=== PATIENT | female | born 1945 | race African-American/Black ===

== ENCOUNTER 2016-10-12 15:08 | Inpatient (IN) | payer MEDICARE, OTHER ==
[~2016-10-12] VITALS: Ht 167.6 cm; Wt 86.2 kg
[2016-10-12] MEDS ORDERED: IV NORMAL SALINE 1000ML BAG 1,000 ML IV SCH ×2 (15:51→17:33)
[2016-10-12 16:05] LABS: BASO # 0.1 x10^3/uL (0.0-0.2); BASO % 0 % (0-3); EOS % 1 % (0-3); HEMATOCRIT 37.3 % (36.0-47.0); HEMOGLOBIN 11.9 g/dL (12.0-15.5); LYMPH # 0.5 x10^3/uL (1.0-4.8); LYMPH % 2 % (24-48); MEAN CORPUSCULAR HEMOGLOBIN 26 pg (25-35); MEAN CORPUSCULAR HGB CONC 32 g/dL (31-37); MEAN CORPUSCULAR VOLUME 83 fL (79-100); MONO % 2 % (0-9); NEUT % 95 % (31-73); PLATELET COUNT 109 x10^3/uL (140-400); RED BLOOD COUNT 4.51 x10^6/uL (3.50-5.40); RED CELL DISTRIBUTION WIDTH 14.3 % (11.5-14.5); WHITE BLOOD COUNT 30.6 x10^3/uL (4.0-11.0)
[2016-10-12 16:17] LABS: CALCIUM 9.9 mg/dL (8.5-10.1); CREATININE 1.7 mg/dL (0.6-1.0); GFR 29.5; POTASSIUM 3.6 mmol/L (3.5-5.1)
[2016-10-12 16:20] LABS: BILIRUBIN,URINE NEGATIVE (NEG); GLUCOSE,URINE NEGATIVE (NEG); NITRITE,URINE POSITIVE (NEG); PH,URINE 5.5; PROTEIN,URINE 100 mg/dL (NEG-TRACE)
[2016-10-12 16:25] LABS: ALBUMIN 2.8 g/dL (3.4-5.0); ALBUMIN/GLOBULIN RATIO 0.6 (1.0-1.7); TOTAL BILIRUBIN 1.2 mg/dL (0.2-1.0); TOTAL PROTEIN 7.7 g/dL (6.4-8.2)
[2016-10-12 16:36] LABS: RBC,URINE TNTC /HPF (0-2); WBC,URINE >40 /HPF (0-4)
[2016-10-12 16:38] LABS: BACTERIA,URINE MODERATE /HPF (0-FEW)
[2016-10-12 16:39] LABS: SQUAMOUS EPITHELIAL CELL,UR FEW /LPF
[2016-10-12 16:46] LABS: PLT ESTIMATE DECREASED (ADEQUATE)
[2016-10-12] MEDS ORDERED: CEFTRIAXONE 1GM IVPB FOR OMNI 50 ML IV ONE (17:30)
[2016-10-12] MEDS ORDERED: IV NORMAL SALINE 1000ML BAG 1,000 ML IV ONE (17:30)
--- NOTE | 2016-10-12 17:33 | PHYS DOC ---
Past Medical History Past Medical History: Arthritis Past Surgical History: Other Additional Past Surgical Histo: CATARACT, L HIP PINS Alcohol Use: None Drug Use: None Adult General Chief Complaint Chief Complaint: MECHANICAL FALL HPI HPI Patient is a 71 year old female brought from home by ambulance after she fell 3 days ago and has been laying on the floor ever since then. She was not able to get up due to right leg pain. She believes she fainted, she doesn't know why she fell in the first place. She has not had anything to eat or drink during this time. She believes she struck her forehead and face when she landed as well. Right now her main complaint is right hip and leg pain. She has not had vomiting or diarrhea. She lives alone in her own home. Review of Systems Review of Systems Constitutional: Denies fever or chills [] Eyes: Denies change in visual acuity, redness, or eye pain [] HENT: Denies nasal congestion or sore throat [] Respiratory: Denies cough or shortness of breath [] Cardiovascular: Denies chest pain GI: Denies abdominal pain, nausea, vomiting, bloody stools or diarrhea [] : Denies dysuria or hematuria [] Musculoskeletal: As in history of present illness Integument: Denies rash or skin lesions [] Neurologic: Denies headache, focal weakness or sensory changes [] Current Medications Current Medications Current Medications Medications (Trade) Dose Ordered Sig/Gaby Start Time Stop Time Status Last Admin Dose Admin Sodium Chloride (Iv Sodium Chloride 0.9% 1000ml Bag) 1,000 ml @ 1,000 mls/hr Q1H 10/12/16 15:51 10/12/16 16:50 DC 10/12/16 16:11 1,000 MLS/HR Allergies Allergies Allergies Coded Allergies Type Severity Reaction Last Updated Verified No Known Drug Allergies 10/12/16 No Physical Exam Physical Exam Constitutional: Well developed, well nourished, no acute distress, non-toxic appearance. Alert, mentating normally. HENT: Abrasion to chin and left cheek that appear consistent with the 3 day time frame, bilateral external ears normal, oral mucous membranes dry, nose normal. [] Eyes: conjunctiva normal, no discharge. [] Neck: Normal range of motion, no stridor. [] Cardiovascular:Heart rate regular rhythm, no murmur [] Lungs & Thorax: Bilateral breath sounds clear to auscultation [] Abdomen: Bowel sounds normal, soft, no tenderness, no masses, no pulsatile masses. [] Skin: Warm, dry, no erythema, no rash. [] Extremities: no cyanosis, no clubbing, ROM intact, no edema. Right hip tender to palpation, right femur tender to palpation, right knee tender to palpation. Lower leg, ankle, foot nontender, no deformity. Neurologic: Alert and oriented X 3, normal motor function, normal sensory function, no focal deficits noted. [] Current Patient Data Vital Signs Vital Signs Date Time Temp Pulse Resp B/P Pulse Ox O2 Delivery O2 Flow Rate FiO2 10/12/16 16:23 104 22 165/90 94 Room Air 10/12/16 15:25 97.4 97.4 Lab Values Laboratory Tests Test 10/12/16 15:50 10/12/16 16:10 White Blood Count 30.6x10^3/uL (4.0-11.0) H Red Blood Count 4.51x10^6/uL (3.50-5.40) Hemoglobin 11.9g/dL (12.0-15.5) L Hematocrit 37.3% (36.0-47.0) Mean Corpuscular Volume 83fL (79-100) Mean Corpuscular Hemoglobin 26pg (25-35) Mean Corpuscular Hemoglobin Concent 32g/dL (31-37) Red Cell Distribution Width 14.3% (11.5-14.5) Platelet Count 109x10^3/uL (140-400) L Neutrophils (%) (Auto) 95% (31-73) H Lymphocytes (%) (Auto) 2% (24-48) L Monocytes (%) (Auto) 2% (0-9) Eosinophils (%) (Auto) 1% (0-3) Basophils (%) (Auto) 0% (0-3) Neutrophils # (Auto) 29.2x10^3uL (1.8-7.7) H Lymphocytes # (Auto) 0.5x10^3/uL (1.0-4.8) L Monocytes # (Auto) 0.6x10^3/uL (0.0-1.1) Eosinophils # (Auto) 0.3x10^3/uL (0.0-0.7) Basophils # (Auto) 0.1x10^3/uL (0.0-0.2) Segmented Neutrophils % 90% (35-66) H Band Neutrophils % 10% (0-9) H Metamyelocytes % 0% (0-0) Platelet Estimate Decreased (ADEQUATE) Sodium Level 148mmol/L (136-145) H Potassium Level 3.6mmol/L (3.5-5.1) Chloride Level 107mmol/L (98-107) Carbon Dioxide Level 23mmol/L (21-32) Anion Gap 18 (6-14) H Blood Urea Nitrogen 57mg/dL (7-20) H Creatinine 1.7mg/dL (0.6-1.0) H Estimated GFR (Cockcroft-Gault) 29.5 BUN/Creatinine Ratio 34 (6-20) H Glucose Level 88mg/dL (70-99) Lactic Acid Level 2.9mmol/L (0.4-2.0) H Calcium Level 9.9mg/dL (8.5-10.1) Total Bilirubin 1.2mg/dL (0.2-1.0) H Aspartate Amino Transferase (AST) 104U/L (15-37) H Alanine Aminotransferase (ALT) 49U/L (14-59) Alkaline Phosphatase 132U/L (46-116) H Total Protein 7.7g/dL (6.4-8.2) Albumin 2.8g/dL (3.4-5.0) L Albumin/Globulin Ratio 0.6 (1.0-1.7) L Urine Collection Type Unknown Urine Color Red Urine Clarity Turbid Urine pH 5.5 Urine Specific [place] 1.015 Urine Protein 100mg/dL (NEG-TRACE) Urine Glucose (UA) Negativemg/dL (NEG) Urine Ketones (Stick) 15mg/dL (NEG) Urine Blood Large (NEG) Urine Nitrite Positive (NEG) Urine Bilirubin Negative (NEG) Urine Urobilinogen Dipstick 1.0mg/dL (0.2 mg/dL) Urine Leukocyte Esterase Large (NEG) Urine RBC Tntc/HPF (0-2) Urine WBC >40/HPF (0-4) Urine Squamous Epithelial Cells Few/LPF Urine Bacteria Moderate/HPF (0-FEW) Laboratory Tests 10/12/16 15:50 Laboratory Tests 10/12/16 15:50 EKG EKG 12-lead EKG read by me sinus rhythm with frequent PACs. There are no ST or T wave changes indicative of ischemia or infarction. No STEMI. 1537 [] Radiology/Procedures Radiology/Procedures One view portable chest x-ray read by me. No acute cardiopulmonary abnormality. No bony abnormality noted. Two-view right hip with pelvis read by me. I believe she has a impacted femoral neck fracture. 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 Left hip has been nailed and also has extensive DJD. Three-view x-ray of the right knee read by me. DJD, no acute bony abnormality. [ ] Course & Med Decision Making Course & Med Decision Making Pertinent Labs and Imaging studies reviewed. (See chart for details) 71-year-old female fell 3 days ago and has been laying on the floor since then without anything to eat or drink. She significantly dehydrated. She has pain and tenderness mostly of the right hip. Advised the patient we will start with some labs, IV fluids, and x-rays. She was given 1 L IV normal saline. X-rays are suspicious for a right hip femoral neck fracture. Urinalysis positive for infection. Culture was ordered. Lactic acid is elevated, dehydration and/or sepsis. She is dehydrated. After cultures were obtained, IV Rocephin was ordered. A second liter of IV normal saline was started. Note made of white count 30,000. I suspect this is due to a combination of dehydration, UTI/sepsis, and stress. I discussed the case with Dr. Franco, [facility]. He will admit the patient. I wrote bridge orders. [] Dragon Disclaimer Dragon Disclaimer This electronic medical record was generated, in whole or in part, using a voice recognition dictation system. Departure Departure Impression: Primary Impression: Closed right hip fracture Additional Impression: Sepsis due to urinary tract infection Disposition: ADMITTED INPATIENT Admitting Physician: Sunny Franco Condition: GUARDED Referrals: NO PCP (PCP) Problem Qualifiers DIANE GONZALEZ MD Oct 12, 2016 17:33
[2016-10-12] MEDS ORDERED: ONDANSETRON PF 4 MG/2 ML VIAL. IV PRN ×2 (17:45→19:30)
[2016-10-12] MEDS ORDERED: FENTANYL PF 100 MCG/2 ML VIAL. IV PRN (17:45)
--- NOTE | 2016-10-12 18:04 | RAD ---
PROCEDURE Noncontrast head CT Noncontrast cervical spine CT HISTORY Found down. Fall. Head injury. Neck pain. TECHNIQUE Noncontrast axial cross sectional CT scanning of the head was performed. Noncontrast helical CT scanning of the cervical spine was performed. Multiplanar 2D reconstructions were generated. One or more of the following individualized dose reduction techniques were utilized for this study: 1. Automated exposure control 2. Adjustment of the mA and/or kV according to patient size 3. Use of iterative reconstruction technique COMPARISON None available. FINDINGS HEAD CT: No acute intracranial hemorrhage or midline shift or mass-effect or hydrocephalus or extra-axial fluid collection is seen. No focal hypodense area is seen to indicate an acute infarct or edema radiographically. No skull fracture or pneumocephalus is seen. No opacification of the mastoid sinuses or the paranasal sinuses is seen. The maxillary sinuses are not completely seen in this study. CERVICAL SPINE CT: No acute fracture or anterolisthesis or discitis or osteolytic process is evident. Degenerative endplate spurring and disc space narrowing is seen throughout the cervical spine. IMPRESSION HEAD CT: No acute intracranial abnormality is seen. CERVICAL SPINE CT: No acute fracture. Electronically signed by: Stan Tucker MD (Oct 12, 2016 18:03:19)
--- NOTE | 2016-10-12 18:07 | RAD ---
PROCEDURE CT study of the maxillofacial bones without contrast HISTORY Found down. Fall. Facial injury and pain. TECHNIQUE Noncontrast helical CT scanning of the maxillofacial bones was performed. Multiplanar 2D reconstructions were generated. One or more of the following individualized dose reduction techniques were utilized for this study: 1. Automated exposure control 2. Adjustment of the mA and/or kV according to patient size 3. Use of iterative reconstruction technique COMPARISON None available. FINDINGS The mandible is intact and the temporomandibular joints are normally aligned. The maxilla and pterygoid plates are intact. The nasal bones and nasal spine are intact. No significant nasal septal deviation is seen. The orbits and orbital floors are intact. The zygoma and zygomatic arch are intact. There is moderate mucosal thickening of the left sphenoid sinus. There is mild mucosal thickening of the inferior aspect of the right frontal sinus. Mild left-sided facial soft tissue edema is seen. IMPRESSION No acute fracture. Left sphenoid sinusitis. Electronically signed by: Stan Tucker MD (Oct 12, 2016 18:06:41)
--- NOTE | 2016-10-12 19:24 | ACF ---
Admission Forms Criteria SEPSIS and OTHER FEBRILE ILLNESS, W/O FOCAL INFECTION Clinical Indications for Admission to Inpatient Care ( Place 'X' for any and all applicable criteria): Admission is indicated for ANY ONE of the following (1)(2)(3)(4): [ ] I. Bacteremia [X]II. Suspected or identified specific infection requiring hospitalization (eg, meningitis, endocarditis) [ ]III. Hemodynamic instability [ ]IV. Altered mental status [ ]V. Failure or unavailability of outpatient antimicrobial treatment [ ]. Hypoxemia [ ]VII. Seizures [ ]VIII. High-risk febrile neutropenia [ ]IX. Need for parenteral antibiotic in patient who is likely to abuse vascular access device (eg, injection drug user) [A](7) [ ]X. Temperature greater than 104.9 degrees F (40.5 degrees C) (oral) [ ]XI. Inpatient admission required rather than observation care because of ANY ONE of the following: [ ]1) Specific infection identified that is too severe for outpatient treatment or observation care trial [ ]2) Metabolic disorder (eg, hypoglycemia, hyperglycemia, metabolic acidosis) that is severe or persistent [ ]3) Temperature greater than 103.1 degrees F (39.5 degrees C) ( oral) that is not responsive to observation care treatment [ ]4) IV fluid to replace significant ongoing (eg, for over 24 hours) losses (> 3 L/m2 per day) [ ]5) Supplemental oxygen or respiratory treatments for over 24 hours that is performable only in acute inpatient setting [ ]6) Parenteral nutrition regimen need that must be implemented on inpatient basis [ ]7) Strict or protective (eg, laminar flow) isolation [ ]8) Other condition, treatment or monitoring requiring inpatient admission Extended stay beyond goal length of stay may be needed for(1)(3) [ ]a) Sepsis or septic shock(22) [ ]b) Positive blood cultures [ ]c) Insufficient oral intake [ ]d) High-risk febrile neutropenia(29)(30) [ ]e) Continued fever and clinical instability [ ]f) Clinically active comorbid illness (e.g,heart failure, renal failure , diabetes) The original [employer] content created by G[employer] has been revised. The portions of the content which have been revised are identified through the use of italic text or in bold, and [employer] has neither reviewed nor approved the modified material. All other unmodified content is copyright [facility]. Please see references footnoted in the original [facility] edition 2016 Admission Criteria Met?: Yes ILA BOWERS Oct 12, 2016 19:24
[2016-10-12] MEDS ORDERED: HYDROCODONE/APAP 5/325MG TABLET. PO PRN (19:30)
[2016-10-12] MEDS ORDERED: hydrALAZINE 20 MG/ML VIAL. IVP PRN (19:30)
[2016-10-12] MEDS ORDERED: ACETAMINOPHEN 325 MG TABLET. PO PRN (19:30)
[2016-10-12] MEDS ORDERED: ALBUTEROL SULFATE 2.5 MG/3 ML NEBU. NEB PRN (19:30)
[2016-10-12 19:35] VITALS: BP 129/87
[2016-10-12] MEDS: IV NORMAL SALINE 1000ML BAG 1,000 ML IV SCH (20:00)
--- NOTE | 2016-10-12 22:05 | PDOC1 ---
History and Physical Current Problem List Problem List Problems Medical Problems: (1) Closed right hip fracture Status: Acute (2) Sepsis due to urinary tract infection Status: Acute Current Medications Current Medications Current Medications Medications (Trade) Dose Ordered Sig/Gaby Start Time Stop Time Status Last Admin Dose Admin Acetaminophen (Tylenol) 325 mg PRN Q6HRS PRN 10/12/16 19:30 Acetaminophen/ Hydrocodone Bitart (Lortab 5/325) 1 tab PRN Q6HRS PRN 10/12/16 19:30 Albuterol Sulfate (Ventolin Neb Soln) 2.5 mg PRN Q4HRS PRN 10/12/16 19:30 Ceftriaxone Sodium (Rocephin 1gm Ivpb For Omni) 50 ml @ 100 mls/hr 1X ONCE 10/12/16 17:30 10/12/16 17:59 DC 10/12/16 17:53 100 MLS/HR Fentanyl Citrate 25 mcg 25 mcg PRN Q2HR PRN 10/12/16 17:45 10/13/16 17:44 Hydralazine HCl (Apresoline) 10 mg PRN Q4HRS PRN 10/12/16 19:30 Ondansetron HCl (Zofran) 4 mg PRN Q8HRS PRN 10/12/16 19:30 Sodium Chloride (Iv Sodium Chloride 0.9% 1000ml Bag) 1,000 ml @ 75 mls/hr [id number] 10/12/16 19:30 Allergies Allergies Allergies Coded Allergies Type Severity Reaction Last Updated Verified No Known Drug Allergies 10/12/16 No ROS Review of System CONSTITUTIONAL: fall at home EYES: No recent changes SKIN: No rash or itching CARDIOVASCULAR: No chest pain, syncope, palpitations, or edema RESPIRATORY: No SOB or cough GASTROINTESTINAL: No nausea, vomiting or abdominal pain NEUROLOGICAL: No headaches or weakness ENDOCRINE: No cold or heat intolerance GENITOURINARY: No urgency or frequency of urination MUSCULOSKELETAL: No back pain or joint pain LYMPHATICS: No enlarged lymph nodes PSYCHIATRIC: No anxiety or depression Physical Exam Physical Exam GEN.: No apparent distress. Alert and oriented. HEENT: Head is normocephalic, atraumatic NECK: Supple. normal airflow LUNGS: Clear to auscultation. no jvd HEART: RRR, S1, S2 present. Peripheral pulses intact ABDOMEN: Soft, nontender. Positive bowel sounds. EXTREMITIES: Without any cyanosis. NEUROLOGIC: Normal speech, normal tone PSYCHIATRIC: Normal affect, normal mood. SKIN bruise on face Vitals Vitals Vital Signs Date Time Temp Pulse Resp B/P Pulse Ox O2 Delivery O2 Flow Rate FiO2 10/12/16 19:35 97.7 108 18 129/87 92 Room Air 97.7 Labs Labs Laboratory Tests Test 10/12/16 15:50 10/12/16 16:10 White Blood Count 30.6x10^3/uL (4.0-11.0) Red Blood Count 4.51x10^6/uL (3.50-5.40) Hemoglobin 11.9g/dL (12.0-15.5) Hematocrit 37.3% (36.0-47.0) Mean Corpuscular Volume 83fL (79-100) Mean Corpuscular Hemoglobin 26pg (25-35) Mean Corpuscular Hemoglobin Concent 32g/dL (31-37) Red Cell Distribution Width 14.3% (11.5-14.5) Platelet Count 109x10^3/uL (140-400) Neutrophils (%) (Auto) 95% (31-73) Lymphocytes (%) (Auto) 2% (24-48) Monocytes (%) (Auto) 2% (0-9) Eosinophils (%) (Auto) 1% (0-3) Basophils (%) (Auto) 0% (0-3) Neutrophils # (Auto) 29.2x10^3uL (1.8-7.7) Lymphocytes # (Auto) 0.5x10^3/uL (1.0-4.8) Monocytes # (Auto) 0.6x10^3/uL (0.0-1.1) Eosinophils # (Auto) 0.3x10^3/uL (0.0-0.7) Basophils # (Auto) 0.1x10^3/uL (0.0-0.2) Segmented Neutrophils % 90% (35-66) Band Neutrophils % 10% (0-9) Metamyelocytes % 0% (0-0) Platelet Estimate Decreased (ADEQUATE) Sodium Level 148mmol/L (136-145) Potassium Level 3.6mmol/L (3.5-5.1) Chloride Level 107mmol/L (98-107) Carbon Dioxide Level 23mmol/L (21-32) Anion Gap 18 (6-14) Blood Urea Nitrogen 57mg/dL (7-20) Creatinine 1.7mg/dL (0.6-1.0) Estimated GFR (Cockcroft-Gault) 29.5 BUN/Creatinine Ratio 34 (6-20) Glucose Level 88mg/dL (70-99) Lactic Acid Level 2.9mmol/L (0.4-2.0) Calcium Level 9.9mg/dL (8.5-10.1) Total Bilirubin 1.2mg/dL (0.2-1.0) Aspartate Amino Transf (AST/SGOT) 104U/L (15-37) Alanine Aminotransferase (ALT/SGPT) 49U/L (14-59) Alkaline Phosphatase 132U/L (46-116) Creatine Kinase 2102U/L (26-192) Total Protein 7.7g/dL (6.4-8.2) Albumin 2.8g/dL (3.4-5.0) Albumin/Globulin Ratio 0.6 (1.0-1.7) Urine Collection Type Unknown Urine Color Red Urine Clarity Turbid Urine pH 5.5 Urine Specific [place] 1.015 Urine Protein 100mg/dL (NEG-TRACE) Urine Glucose (UA) Negativemg/dL (NEG) Urine Ketones (Stick) 15mg/dL (NEG) Urine Blood Large (NEG) Urine Nitrite Positive (NEG) Urine Bilirubin Negative (NEG) Urine Urobilinogen Dipstick 1.0mg/dL (0.2 mg/dL) Urine Leukocyte Esterase Large (NEG) Urine RBC Tntc/HPF (0-2) Urine WBC >40/HPF (0-4) Urine Squamous Epithelial Cells Few/LPF Urine Bacteria Moderate/HPF (0-FEW) Laboratory Tests Test 10/12/16 15:50 10/12/16 16:10 White Blood Count 30.6x10^3/uL (4.0-11.0) Red Blood Count 4.51x10^6/uL (3.50-5.40) Hemoglobin 11.9g/dL (12.0-15.5) Hematocrit 37.3% (36.0-47.0) Mean Corpuscular Volume 83fL (79-100) Mean Corpuscular Hemoglobin 26pg (25-35) Mean Corpuscular Hemoglobin Concent 32g/dL (31-37) Red Cell Distribution Width 14.3% (11.5-14.5) Platelet Count 109x10^3/uL (140-400) Neutrophils (%) (Auto) 95% (31-73) Lymphocytes (%) (Auto) 2% (24-48) Monocytes (%) (Auto) 2% (0-9) Eosinophils (%) (Auto) 1% (0-3) Basophils (%) (Auto) 0% (0-3) Neutrophils # (Auto) 29.2x10^3uL (1.8-7.7) Lymphocytes # (Auto) 0.5x10^3/uL (1.0-4.8) Monocytes # (Auto) 0.6x10^3/uL (0.0-1.1) Eosinophils # (Auto) 0.3x10^3/uL (0.0-0.7) Basophils # (Auto) 0.1x10^3/uL (0.0-0.2) Segmented Neutrophils % 90% (35-66) Band Neutrophils % 10% (0-9) Metamyelocytes % 0% (0-0) Platelet Estimate Decreased (ADEQUATE) Sodium Level 148mmol/L (136-145) Potassium Level 3.6mmol/L (3.5-5.1) Chloride Level 107mmol/L (98-107) Carbon Dioxide Level 23mmol/L (21-32) Anion Gap 18 (6-14) Blood Urea Nitrogen 57mg/dL (7-20) Creatinine 1.7mg/dL (0.6-1.0) Estimated GFR (Cockcroft-Gault) 29.5 BUN/Creatinine Ratio 34 (6-20) Glucose Level 88mg/dL (70-99) Lactic Acid Level 2.9mmol/L (0.4-2.0) Calcium Level 9.9mg/dL (8.5-10.1) Total Bilirubin 1.2mg/dL (0.2-1.0) Aspartate Amino Transf (AST/SGOT) 104U/L (15-37) Alanine Aminotransferase (ALT/SGPT) 49U/L (14-59) Alkaline Phosphatase 132U/L (46-116) Creatine Kinase 2102U/L (26-192) Total Protein 7.7g/dL (6.4-8.2) Albumin 2.8g/dL (3.4-5.0) Albumin/Globulin Ratio 0.6 (1.0-1.7) Urine Collection Type Unknown Urine Color Red Urine Clarity Turbid Urine pH 5.5 Urine Specific [place] 1.015 Urine Protein 100mg/dL (NEG-TRACE) Urine Glucose (UA) Negativemg/dL (NEG) Urine Ketones (Stick) 15mg/dL (NEG) Urine Blood Large (NEG) Urine Nitrite Positive (NEG) Urine Bilirubin Negative (NEG) Urine Urobilinogen Dipstick 1.0mg/dL (0.2 mg/dL) Urine Leukocyte Esterase Large (NEG) Urine RBC Tntc/HPF (0-2) Urine WBC >40/HPF (0-4) Urine Squamous Epithelial Cells Few/LPF Urine Bacteria Moderate/HPF (0-FEW) VTE Prophylaxis Ordered VTE Prophylaxis Devices: Yes VTE Pharmacological Prophylaxi: Yes ANA M DEE MD Oct 12, 2016 22:05
[2016-10-12 23:20] VITALS: BP 129/60
[2016-10-13] VITALS (12 sets, daily range): BP systolic 101–153; BP diastolic 22–69
[2016-10-13] MEDS: IV NORMAL SALINE 1000ML BAG 1,000 ML IV SCH ×2 (04:35→11:03)
[2016-10-13 05:10] LABS: BASO % 0 % (0-3); EOS % 0 % (0-3); HEMATOCRIT 33.7 % (36.0-47.0); HEMOGLOBIN 10.7 g/dL (12.0-15.5); LYMPH # 0.7 x10^3/uL (1.0-4.8); LYMPH % 3 % (24-48); MEAN CORPUSCULAR HEMOGLOBIN 27 pg (25-35); MEAN CORPUSCULAR HGB CONC 32 g/dL (31-37); MEAN CORPUSCULAR VOLUME 83 fL (79-100); MONO % 3 % (0-9); NEUT % 94 % (31-73); PLATELET COUNT 83 x10^3/uL (140-400); RED BLOOD COUNT 4.04 x10^6/uL (3.50-5.40); RED CELL DISTRIBUTION WIDTH 14.5 % (11.5-14.5); WHITE BLOOD COUNT 23.1 x10^3/uL (4.0-11.0)
[2016-10-13 05:50] LABS: CALCIUM 9.2 mg/dL (8.5-10.1); CREATININE 1.4 mg/dL (0.6-1.0); GFR 44.7
--- NOTE | 2016-10-13 06:47 | EKG ---
[facility] [address] [place] [address] Test Date: 2016-10-12 Test Time: 15:37:30 Pat Name: HENNY SAEZ Department: Room: 410 Gender: F Wanigan Clerk: : 1945 Requested By: DAINE GONZALEZ Order Number: [id number] Reading MD: Bo Alicia Measurements Intervals [place] Rate: 99 P: 43 UT: 140 QRS: 9 QRSD: 70 T: 36 QT: 358 QTc: 465 Interpretive Statements SINUS RHYTHM ATRIAL PREMATURE COMPLEX(ES) OTHERWISE NORMAL ECG RI6.01 No previous ECG available for comparison Electronically Signed On 10-30-2016 14:23:05 [employer]PER[employer] by Bo Alicia
--- NOTE | 2016-10-13 07:45 | HP ---
ADMIT DATE: 10/12/2016 CHIEF COMPLAINT: Dehydration. HISTORY OF PRESENT ILLNESS: A 71-year-old female patient was brought to the hospital by EMS after sustaining a questionable fall at home and reportedly the patient was lying on the floor for nearly 3 days and some of her family members called EMS and brought to the ER. Upon arrival, the patient was diagnosed with a fracture of the right hip and also she was noted to have severe dehydration and urinary tract infection. At the time of my examination, the patient appears to be dehydrated and healing bruise present on the left side of the face and bilateral knee regions. She denies any syncope. She does not recall how she fell. However, she is complaining of right hip pain with muscle mobility. PAST MEDICAL HISTORY: Cataracts, arthritis, hip pain. PERSONAL HISTORY: No smoking, no alcohol, no drug use. FAMILY HISTORY: Questionable hypertension. REVIEW OF SYSTEMS AND PHYSICAL EXAMINATION: Please see my electronic H and P. LABORATORY FINDINGS: Chemistry: Sodium is 148, potassium 3.6, chloride is 107, carbon dioxide 23, anion gap 18, BUN is 57 and creatinine is 1.7. GFR 29 and glucose ____, lactic acid 2.9, total bilirubin 1.2. AST 104. CK is 2102. WBC ____ hemoglobin is 11.9, MCV is 83, platelets 109, neutrophils 95, segmented neutrophil 90%, bands 10%. Urine: Ketones 15, nitrites positive, leukocyte esterase large. IMAGING STUDIES: Maxillofacial CT and CT neck ____ seen. Hip pelvic x-ray preliminary report right hip fracture, final report pending. ASSESSMENT AND PLAN: 1. Status post fall at home. 2. Right hip fracture found on admission. 3. Urinary tract infection. 4. Acute kidney injury. 5. Severe dehydration. 6. Elevated CPK. 7. Leukocytosis PLAN: 1. The patient is admitted to hospital and orthopedics has been consulted. Pain control with IV morphine. 2. She received Rocephin. I will continue Rocephin. IV hydration at least 125 mL per hour. 3. Monitor WBC in the a.m. If the symptoms persist consult Infectious Disease. 4. Monitor CPK in a.m. 5. DVT prophylaxis. 6. The patient did not get any prescription home medications. 7. Supportive care, n.p.o. from midnight. 8. Prognosis is guarded. 9. Fall precautions. 10. Pain control with oral [place] ANA M DEE MD DR: ANKIT/andriy JOB#: [id number] / [id number] NYLA
--- NOTE | 2016-10-13 08:47 | RAD ---
Pelvis with right hip, 10/12/2016: History: Fall There is severe degenerative change at both hip joints with joint space narrowing, subchondral sclerosis and cyst formation. Two surgical pins are present extending longitudinally through the left femoral neck into the femoral head, apparently transfixing an old healed fracture. There is cortical irregularity at the junction of the right femoral head and neck which is probably due to spurring. A definite acute fracture line is not seen. No underlying trabecular distortion is identified. An IUD is projected over the pelvis just left of midline. IMPRESSION: 1. Severe degenerative change at both hip joints. 2. Old, healed, internally fixed left femoral neck fracture. 3. No acute right hip abnormality is detected. If there is a high clinical concern of an occult fracture, CT or MR scanning may be useful for further evaluation.
--- NOTE | 2016-10-13 08:51 | RAD ---
Right knee, 3 views, 10/12/2016: History: Fall No acute fracture or dislocation is identified. There is minimal spurring at the knee joint and at the patellofemoral articulation. No significant joint effusion is seen. IMPRESSION: No acute bony abnormality is detected.
--- NOTE | 2016-10-13 08:53 | RAD ---
Portable chest, 10/12/2016: History: Fall, shortness of breath The heart size and pulmonary vascularity are normal. There is mild calcific plaquing of the thoracic aorta. There is mild linear atelectasis or scarring in the right infrahilar region. The lungs are otherwise clear. There is no evidence of pleural fluid or pneumothorax. Moderate hypertrophic spurring is present in the spine. IMPRESSION: 1. Mild right basilar linear atelectasis or scarring. 2. Otherwise no acute cardiopulmonary abnormality is detected.
[2016-10-13] MEDS: POTASSIUM CHLORIDE 10MEQ 100 ML IV SCH ×4 (12:24→22:44)
[2016-10-13] MEDS ORDERED: IV 1/2 NORMAL SALINE 1,000 ML IV SCH (13:00)
[2016-10-13] MEDS ORDERED: LIDOCAINE 2% 100 MG/5 ML DISP.SYRIN. ONE (14:06)
[2016-10-13] MEDS ORDERED: ONDANSETRON PF 4 MG/2 ML VIAL. ONE (14:06)
[2016-10-13] MEDS ORDERED: FENTANYL PF 100 MCG/2 ML VIAL. ONE ×3 (14:06→16:47)
[2016-10-13] MEDS ORDERED: FAMOTIDINE 20 MG/2 ML VIAL ONE (14:06)
[2016-10-13] MEDS ORDERED: PROPOFOL 20 ML IV ONE (14:06)
[2016-10-13] MEDS ORDERED: ROCURONIUM 50 MG/5 ML VIAL. ONE (14:06)
[2016-10-13] MEDS ORDERED: MORPHINE SULFATE 5 MG, KETOROLAC TROMETHAMINE 30 MG, ROPIVacaine 0.5% PF 60 ML, EPINEPH... INT ART ONE ×5 (14:30)
[2016-10-13] MEDS ORDERED: IV RINGERS,LACTATED 1000ML 1,000 ML IV ONE (14:30)
[2016-10-13] MEDS ORDERED: CEFAZOLIN 2GM PREMIX 0 ML IV ONE (14:35)
[2016-10-13] MEDS ORDERED: ONDANSETRON PF 4 MG/2 ML VIAL. IV PRN (15:30)
--- NOTE | 2016-10-13 15:35 | PDOC ---
PROGRESS NOTES Chief Complaint Chief Complaint 1. Status post fall at home. 2. Right hip fracture?, traumatic with fall. neg XR 3. + UA , asymptomatic 4. Acute kidney injury vasomotor, dehydration 5. Severe dehydration. 6. Elevated CPK. 7. Leukocytosis __reactive likely__. 8. hypernatremia 9. hypokalemia 10. high LA, 2/2 dehydration likely plan: 1. ortho sx today, fu with ortho for details, since neg XR but clinical Rt hip fx? 2. cont IVF , change to 1/2 NS 3. fu ucx, cont ceftraxone for now 4. ptot post op 5. labs tmr SW for rehab later this week hopefully History of Present Illness History of Present Illness healthy, independency fell from chair, on floor for 3ds good urine Vitals Vitals Vital Signs Date Time Temp Pulse Resp B/P Pulse Ox O2 Delivery O2 Flow Rate FiO2 10/13/16 14:41 98.8 107 13 146/68 94 Room Air 98.8 Physical Exam General: Alert, Oriented X3, Cooperative Heart: Regular rate, Normal S1, Normal S2 Lungs: Clear Abdomen: Normal bowel sounds, Soft Extremities: No clubbing, No cyanosis Skin: No rashes Labs LABS Laboratory Tests Test 10/12/16 15:50 10/12/16 16:10 10/13/16 04:35 White Blood Count 30.6x10^3/uL (4.0-11.0) 23.1x10^3/uL (4.0-11.0) Red Blood Count 4.51x10^6/uL (3.50-5.40) 4.04x10^6/uL (3.50-5.40) Hemoglobin 11.9g/dL (12.0-15.5) 10.7g/dL (12.0-15.5) Hematocrit 37.3% (36.0-47.0) 33.7% (36.0-47.0) Mean Corpuscular Volume 83fL (79-100) 83fL (79-100) Mean Corpuscular Hemoglobin 26pg (25-35) 27pg (25-35) Mean Corpuscular Hemoglobin Concent 32g/dL (31-37) 32g/dL (31-37) Red Cell Distribution Width 14.3% (11.5-14.5) 14.5% (11.5-14.5) Platelet Count 109x10^3/uL (140-400) 83x10^3/uL (140-400) Neutrophils (%) (Auto) 95% (31-73) 94% (31-73) Lymphocytes (%) (Auto) 2% (24-48) 3% (24-48) Monocytes (%) (Auto) 2% (0-9) 3% (0-9) Eosinophils (%) (Auto) 1% (0-3) 0% (0-3) Basophils (%) (Auto) 0% (0-3) 0% (0-3) Neutrophils # (Auto) 29.2x10^3uL (1.8-7.7) 21.6x10^3uL (1.8-7.7) Lymphocytes # (Auto) 0.5x10^3/uL (1.0-4.8) 0.7x10^3/uL (1.0-4.8) Monocytes # (Auto) 0.6x10^3/uL (0.0-1.1) 0.7x10^3/uL (0.0-1.1) Eosinophils # (Auto) 0.3x10^3/uL (0.0-0.7) 0.1x10^3/uL (0.0-0.7) Basophils # (Auto) 0.1x10^3/uL (0.0-0.2) 0.0x10^3/uL (0.0-0.2) Segmented Neutrophils % 90% (35-66) Band Neutrophils % 10% (0-9) Metamyelocytes % 0% (0-0) Platelet Estimate Decreased (ADEQUATE) Sodium Level 148mmol/L (136-145) 148mmol/L (136-145) Potassium Level 3.6mmol/L (3.5-5.1) 3.0mmol/L (3.5-5.1) Chloride Level 107mmol/L (98-107) 112mmol/L (98-107) Carbon Dioxide Level 23mmol/L (21-32) 23mmol/L (21-32) Anion Gap 18 (6-14) 13 (6-14) Blood Urea Nitrogen 57mg/dL (7-20) 47mg/dL (7-20) Creatinine 1.7mg/dL (0.6-1.0) 1.4mg/dL (0.6-1.0) Estimated GFR (Cockcroft-Gault) 29.5 44.7 BUN/Creatinine Ratio 34 (6-20) Glucose Level 88mg/dL (70-99) 82mg/dL (70-99) Lactic Acid Level 2.9mmol/L (0.4-2.0) Calcium Level 9.9mg/dL (8.5-10.1) 9.2mg/dL (8.5-10.1) Total Bilirubin 1.2mg/dL (0.2-1.0) Aspartate Amino Transf (AST/SGOT) 104U/L (15-37) Alanine Aminotransferase (ALT/SGPT) 49U/L (14-59) Alkaline Phosphatase 132U/L (46-116) Creatine Kinase 2102U/L (26-192) Total Protein 7.7g/dL (6.4-8.2) Albumin 2.8g/dL (3.4-5.0) Albumin/Globulin Ratio 0.6 (1.0-1.7) Urine Collection Type Unknown Urine Color Red Urine Clarity Turbid Urine pH 5.5 Urine Specific [place] 1.015 Urine Protein 100mg/dL (NEG-TRACE) Urine Glucose (UA) Negativemg/dL (NEG) Urine Ketones (Stick) 15mg/dL (NEG) Urine Blood Large (NEG) Urine Nitrite Positive (NEG) Urine Bilirubin Negative (NEG) Urine Urobilinogen Dipstick 1.0mg/dL (0.2 mg/dL) Urine Leukocyte Esterase Large (NEG) Urine RBC Tntc/HPF (0-2) Urine WBC >40/HPF (0-4) Urine Squamous Epithelial Cells Few/LPF Urine Bacteria Moderate/HPF (0-FEW) Review of Systems Review of Systems no fever, chills, sob or chest pain Assessment and Plan Assessmemt and Plan Problems Medical Problems: (1) Closed right hip fracture Status: Acute (2) Sepsis due to urinary tract infection Status: Acute Problems: Comment Review of Relevant I have reviewed the following items selena (where applicable) has been applied. Labs Laboratory Tests Test 10/12/16 15:50 2/12/17 16:10 10/13/16 04:35 White Blood Count 30.6x10^3/uL (4.0-11.0) 23.1x10^3/uL (4.0-11.0) Red Blood Count 4.51x10^6/uL (3.50-5.40) 4.04x10^6/uL (3.50-5.40) Hemoglobin 11.9g/dL (12.0-15.5) 10.7g/dL (12.0-15.5) Hematocrit 37.3% (36.0-47.0) 33.7% (36.0-47.0) Mean Corpuscular Volume 83fL (79-100) 83fL (79-100) Mean Corpuscular Hemoglobin 26pg (25-35) 27pg (25-35) Mean Corpuscular Hemoglobin Concent 32g/dL (31-37) 32g/dL (31-37) Red Cell Distribution Width 14.3% (11.5-14.5) 14.5% (11.5-14.5) Platelet Count 109x10^3/uL (140-400) 83x10^3/uL (140-400) Neutrophils (%) (Auto) 95% (31-73) 94% (31-73) Lymphocytes (%) (Auto) 2% (24-48) 3% (24-48) Monocytes (%) (Auto) 2% (0-9) 3% (0-9) Eosinophils (%) (Auto) 1% (0-3) 0% (0-3) Basophils (%) (Auto) 0% (0-3) 0% (0-3) Neutrophils # (Auto) 29.2x10^3uL (1.8-7.7) 21.6x10^3uL (1.8-7.7) Lymphocytes # (Auto) 0.5x10^3/uL (1.0-4.8) 0.7x10^3/uL (1.0-4.8) Monocytes # (Auto) 0.6x10^3/uL (0.0-1.1) 0.7x10^3/uL (0.0-1.1) Eosinophils # (Auto) 0.3x10^3/uL (0.0-0.7) 0.1x10^3/uL (0.0-0.7) Basophils # (Auto) 0.1x10^3/uL (0.0-0.2) 0.0x10^3/uL (0.0-0.2) Segmented Neutrophils % 90% (35-66) Band Neutrophils % 10% (0-9) Metamyelocytes % 0% (0-0) Platelet Estimate Decreased (ADEQUATE) Sodium Level 148mmol/L (136-145) 148mmol/L (136-145) Potassium Level 3.6mmol/L (3.5-5.1) 3.0mmol/L (3.5-5.1) Chloride Level 107mmol/L (98-107) 112mmol/L (98-107) Carbon Dioxide Level 23mmol/L (21-32) 23mmol/L (21-32) Anion Gap 18 (6-14) 13 (6-14) Blood Urea Nitrogen 57mg/dL (7-20) 47mg/dL (7-20) Creatinine 1.7mg/dL (0.6-1.0) 1.4mg/dL (0.6-1.0) Estimated GFR (Cockcroft-Gault) 29.5 44.7 BUN/Creatinine Ratio 34 (6-20) Glucose Level 88mg/dL (70-99) 82mg/dL (70-99) Lactic Acid Level 2.9mmol/L (0.4-2.0) Calcium Level 9.9mg/dL (8.5-10.1) 9.2mg/dL (8.5-10.1) Total Bilirubin 1.2mg/dL (0.2-1.0) Aspartate Amino Transf (AST/SGOT) 104U/L (15-37) Alanine Aminotransferase (ALT/SGPT) 49U/L (14-59) Alkaline Phosphatase 132U/L (46-116) Creatine Kinase 2102U/L (26-192) Total Protein 7.7g/dL (6.4-8.2) Albumin 2.8g/dL (3.4-5.0) Albumin/Globulin Ratio 0.6 (1.0-1.7) Urine Collection Type Unknown Urine Color Red Urine Clarity Turbid Urine pH 5.5 Urine Specific [place] 1.015 Urine Protein 100mg/dL (NEG-TRACE) Urine Glucose (UA) Negativemg/dL (NEG) Urine Ketones (Stick) 15mg/dL (NEG) Urine Blood Large (NEG) Urine Nitrite Positive (NEG) Urine Bilirubin Negative (NEG) Urine Urobilinogen Dipstick 1.0mg/dL (0.2 mg/dL) Urine Leukocyte Esterase Large (NEG) Urine RBC Tntc/HPF (0-2) Urine WBC >40/HPF (0-4) Urine Squamous Epithelial Cells Few/LPF Urine Bacteria Moderate/HPF (0-FEW) Laboratory Tests Test 10/12/16 15:50 10/12/16 16:10 10/13/16 04:35 White Blood Count 30.6x10^3/uL (4.0-11.0) 23.1x10^3/uL (4.0-11.0) Red Blood Count 4.51x10^6/uL (3.50-5.40) 4.04x10^6/uL (3.50-5.40) Hemoglobin 11.9g/dL (12.0-15.5) 10.7g/dL (12.0-15.5) Hematocrit 37.3% (36.0-47.0) 33.7% (36.0-47.0) Mean Corpuscular Volume 83fL (79-100) 83fL (79-100) Mean Corpuscular Hemoglobin 26pg (25-35) 27pg (25-35) Mean Corpuscular Hemoglobin Concent 32g/dL (31-37) 32g/dL (31-37) Red Cell Distribution Width 14.3% (11.5-14.5) 14.5% (11.5-14.5) Platelet Count 109x10^3/uL (140-400) 83x10^3/uL (140-400) Neutrophils (%) (Auto) 95% (31-73) 94% (31-73) Lymphocytes (%) (Auto) 2% (24-48) 3% (24-48) Monocytes (%) (Auto) 2% (0-9) 3% (0-9) Eosinophils (%) (Auto) 1% (0-3) 0% (0-3) Basophils (%) (Auto) 0% (0-3) 0% (0-3) Neutrophils # (Auto) 29.2x10^3uL (1.8-7.7) 21.6x10^3uL (1.8-7.7) Lymphocytes # (Auto) 0.5x10^3/uL (1.0-4.8) 0.7x10^3/uL (1.0-4.8) Monocytes # (Auto) 0.6x10^3/uL (0.0-1.1) 0.7x10^3/uL (0.0-1.1) Eosinophils # (Auto) 0.3x10^3/uL (0.0-0.7) 0.1x10^3/uL (0.0-0.7) Basophils # (Auto) 0.1x10^3/uL (0.0-0.2) 0.0x10^3/uL (0.0-0.2) Segmented Neutrophils % 90% (35-66) Band Neutrophils % 10% (0-9) Metamyelocytes % 0% (0-0) Platelet Estimate Decreased (ADEQUATE) Sodium Level 148mmol/L (136-145) 148mmol/L (136-145) Potassium Level 3.6mmol/L (3.5-5.1) 3.0mmol/L (3.5-5.1) Chloride Level 107mmol/L (98-107) 112mmol/L (98-107) Carbon Dioxide Level 23mmol/L (21-32) 23mmol/L (21-32) Anion Gap 18 (6-14) 13 (6-14) Blood Urea Nitrogen 57mg/dL (7-20) 47mg/dL (7-20) Creatinine 1.7mg/dL (0.6-1.0) 1.4mg/dL (0.6-1.0) Estimated GFR (Cockcroft-Gault) 29.5 44.7 BUN/Creatinine Ratio 34 (6-20) Glucose Level 88mg/dL (70-99) 82mg/dL (70-99) Lactic Acid Level 2.9mmol/L (0.4-2.0) Calcium Level 9.9mg/dL (8.5-10.1) 9.2mg/dL (8.5-10.1) Total Bilirubin 1.2mg/dL (0.2-1.0) Aspartate Amino Transf (AST/SGOT) 104U/L (15-37) Alanine Aminotransferase (ALT/SGPT) 49U/L (14-59) Alkaline Phosphatase 132U/L (46-116) Creatine Kinase 2102U/L (26-192) Total Protein 7.7g/dL (6.4-8.2) Albumin 2.8g/dL (3.4-5.0) Albumin/Globulin Ratio 0.6 (1.0-1.7) Urine Collection Type Unknown Urine Color Red Urine Clarity Turbid Urine pH 5.5 Urine Specific [place] 1.015 Urine Protein 100mg/dL (NEG-TRACE) Urine Glucose (UA) Negativemg/dL (NEG) Urine Ketones (Stick) 15mg/dL (NEG) Urine Blood Large (NEG) Urine Nitrite Positive (NEG) Urine Bilirubin Negative (NEG) Urine Urobilinogen Dipstick 1.0mg/dL (0.2 mg/dL) Urine Leukocyte Esterase Large (NEG) Urine RBC Tntc/HPF (0-2) Urine WBC >40/HPF (0-4) Urine Squamous Epithelial Cells Few/LPF Urine Bacteria Moderate/HPF (0-FEW) Medications Current Medications Sodium Chloride 1,000 ml @ 1,000 mls/hr Q1H IV Last administered on 10/12/16 16:11; Start 10/12/16 at 15:51; Stop 10/12/16 at 16:50; Status DC Sodium Chloride 1,000 ml @ 1,000 mls/hr 1X ONCE IV Last administered on 18:23; Start 10/12/16 at 17:30; Stop 10/12/16 at 18:29; Status DC Ceftriaxone Sodium (Rocephin 1gm Ivpb For Omni) 50 ml @ 100 mls/hr 1X ONCE IV Last administered on 10/12/16 17:53; Start 10/12/16 at 17:30; Stop 10/12/16 at 17:59; Status DC Ondansetron HCl (Zofran) 4 mg PRN Q8HRS PRN IV NAUSEA/VOMITING Last administered on 10/12/16 23:00; Start 10/12/16 at 17:45; Stop 10/13/16 at 17:44 Fentanyl Citrate 25 mcg 25 mcg PRN Q2HR PRN IV PAIN; Start 10/12/16 at 17:45; Stop 10/13/16 at 17:44 Sodium Chloride 1,000 ml @ 100 mls/hr Q10H IV ; Start 10/12/16 at 17:33; Stop 10/12/16 at 22:18; Status DC Sodium Chloride (Iv Sodium Chloride 0.9% 1000ml Bag) 1,000 ml @ 125 mls/hr Q8H IV Last administered on 10/13/16 11:03; Start 10/12/16 at 19:30; Stop at 12:08; Status DC Acetaminophen (Tylenol) 325 mg PRN Q6HRS PRN PO MILD PAIN / TEMP; Start at 19:30 Acetaminophen/ Hydrocodone Bitart (Lortab 5/325) 1 tab PRN Q6HRS PRN PO MODERATE TO SEVERE PAIN Last administered on 10/12/16 23:01; Start 10/12/16 at 19:30 Hydralazine HCl (Apresoline) 10 mg PRN Q4HRS PRN IVP ELEVATED BP, SEE COMMENTS ; Start 10/12/16 at 19:30 Ondansetron HCl (Zofran) 4 mg PRN Q8HRS PRN IV NAUSEA/VOMITING; Start 10/12/16 at 19:30 Albuterol Sulfate 2.5 mg 2.5 mg PRN Q4HRS PRN NEB SHORTNESS OF BREATH; Start at 19:30 Ceftriaxone Sodium 1 gm/ Sodium Chloride 50 ml @ 100 mls/hr Q24H IV ; Start at 18:00 Sodium Chloride 1,000 ml @ 125 mls/hr Q8H IV Last administered on 10/13/16 12 :23; Start 10/13/16 at 13:00 Potassium Chloride (KCl Premix 10meq) 100 ml @ 100 mls/hr Q1H IV Last administered on 10/13/16 12:24; Start 10/13/16 at 13:00; Stop 10/13/16 at 16:59 Famotidine (Pepcid) 20 mg STK-MED ONCE .ROUTE ; Start 10/13/16 at 14:06; Stop at 14:07; Status DC Ondansetron HCl 4 mg 4 mg STK-MED ONCE .ROUTE ; Start 10/13/16 at 14:06; Stop at 14:07; Status DC Propofol (Diprivan) 20 ml @ As Directed STK-MED ONCE IV ; Start 10/13/16 at 14: 06; Stop 10/13/16 at 14:07; Status DC Lidocaine HCl 100 mg STK-MED ONCE .ROUTE ; Start 10/13/16 at 14:06; Stop at 14:07; Status DC Fentanyl Citrate (Fentanyl 2ml Vial) 100 mcg STK-MED ONCE .ROUTE ; Start at 14:06; Stop 10/13/16 at 14:07; Status DC Rocuronium [place] 50 mg 50 mg STK-MED ONCE .ROUTE ; Start 10/13/16 at 14:06; Stop 10/13/16 at 14:07; Status DC Morphine Sulfate 5 mg/Ketorolac Tromethamine 30 mg/Ropivacaine 60 ml/ Epinephrine HCl 0.5 mg/Sodium Chloride 100.5 ml @ 100.5 mls/ hr 1X PERIOP ONCE INT ART ; Start 10/14/16 at 06:00; Stop 10/14/16 at 06:00; Status DC Lactated Ringer's 1,000 ml @ 75 mls/hr 1X ONCE IV ; Start 10/13/16 at 14:30; Stop 10/14/16 at 03:49 Morphine Sulfate 5 mg/Ketorolac Tromethamine 30 mg/Ropivacaine 60 ml/ Epinephrine HCl 0.5 mg/Sodium Chloride 100.5 ml @ 100.5 mls/ hr 1X PERIOP ONCE INT ART ; Start 10/13/16 at 14:30; Stop 10/13/16 at 15:29 Cefazolin Sodium/ Dextrose 50 ml @ As Directed STK-MED ONCE IV ; Start 10/13/16 at 14:35; Stop 10/13/16 at 14:36; Status DC Cefazolin Sodium/ Dextrose (Ancef 2gm Premix) 50 ml @ 100 mls/hr 1X PREOP PRN IV Pre op; Start 10/14/16 at 06:00; Stop 10/14/16 at 18:00 Vitals/I & O Vital Sign - Last 24 Hours 10/12/16 10/12/16 10/12/16 10/12/16 15:28 15:38 15:53 16:08 Pulse 112 103 103 104 Resp B/P 150/72 147/70 141/80 157/88 Pulse Ox 94 97 94 O2 Delivery Room Air Room Air Room Air Room Air 10/12/16 10/12/16 10/12/16 10/12/16 16:23 17:07 17:52 18:18 Pulse 104 91 93 98 Resp B/P 165/90 179/75 154/125 176/77 Pulse Ox 94 95 94 O2 Delivery Room Air Room Air Room Air Room Air 10/12/16 10/12/16 10/12/16 10/13/16 18:48 19:35 23:20 03:22 Temp 97.7 97.7 98.1 97.7 97.7 98.1 Pulse 97 108 114 106 Resp B/P 170/74 129/87 129/60 113/62 Pulse Ox 95 92 97 96 O2 Delivery Room Air Room Air Room Air Room Air 10/13/16 10/13/16 10/13/16 10/13/16 07:00 07:30 11:00 14:41 Temp 98.7 98.3 98.8 98.7 98.3 98.8 Pulse 95 98 107 Resp B/P 126/67 150/66 146/68 Pulse Ox 94 93 94 O2 Delivery Room Air Room Air Room Air Room Air Intake and Output 10/12/16 10/12/16 10/13/16 15:00 23:00 07:00 Intake Total 1350 ml 400 ml Output Total 500 ml Balance 1350 ml -100 ml SELAM WALLACE MD Oct 13, 2016 15:34
[2016-10-13] MEDS ORDERED: DESFLURANE > 120 MINUTES IH ONE (16:49)
--- NOTE | 2016-10-13 18:11 | PDOC ---
BRIEF OPERATIVE NOTE Date: Oct 13, 2016 Pre-Op Diagnosis right hip severe djd with severe pain s/p fall Post-Op Diagnosis same Procedure Performed right total hip arthroplasty Surgeon Siria Anesthesia Type: General Blood Loss 300cc Specimens Obtained femoral head to pathology Findings above Complications none ZAKI MEZA MD Oct 13, 2016 18:11
[2016-10-13] MEDS ORDERED: HYDROMORPHONE 2 MG/ML VIAL. IV PRN (18:15)
[2016-10-13] MEDS ORDERED: FENTANYL PF 100 MCG/2 ML VIAL. IV PRN ×2 (18:15)
[2016-10-13] MEDS ORDERED: MORPHINE SULFATE 2 MG/ML DISP.SYRIN. IV PRN (18:15)
[2016-10-13] MEDS ORDERED: 0.9 % SODIUM CHLORIDE 10 ML DISP.SYRIN. IV PRN (18:15)
[2016-10-13] MEDS ORDERED: TRAMADOL 50 MG TABLET. PO PRN ×2 (18:15)
[2016-10-13] MEDS ORDERED: HYDROCODONE/APAP 10/325 TABLET. PO PRN (18:15)
[2016-10-13] MEDS ORDERED: DEXTROSE 50% 25 GM / 50ML DISP.SYRIN. IV PRN (18:15)
[2016-10-13] MEDS ORDERED: HYDROCODONE/APAP 7.5/325MG TABLET. PO PRN (18:15)
[2016-10-13] MEDS ORDERED: OXYCODONE/APAP 5/325 TABLET. PO PRN (18:15)
[2016-10-13] MEDS ORDERED: OXYCODONE/APAP 7.5/325 TABLET. PO PRN (18:15)
[2016-10-13] MEDS ORDERED: PROCHLORPERAZINE 10 MG/2 ML VIAL. IV PRN ×2 (18:15)
[2016-10-13] MEDS ORDERED: DIPHENHYDRAMINE 50 MG/ML VIAL IV PRN ×2 (18:15)
[2016-10-13] MEDS ORDERED: ZOLPIDEM 5 MG TABLET. PO PRN (18:15)
[2016-10-13] MEDS ORDERED: CALCIUM CARBONATE 500 MG TAB.CHEW PO PRN (18:15)
[2016-10-13] MEDS ORDERED: MEPERIDINE PF 25 MG/ML VIAL. IV PRN (18:15)
[2016-10-13] MEDS ORDERED: MORPHINE SULFATE 4 MG/ML DISP.SYRIN. IV PRN ×2 (18:15)
[2016-10-13] MEDS ORDERED: ACETAMINOPHEN 325 MG TABLET. PO PRN (18:15)
[2016-10-13] MEDS: FENTANYL PF 100 MCG/2 ML VIAL. IV PRN ×2 (18:20→18:27)
[2016-10-13 20:00] LABS: INR 1.4 (0.8-1.1); PROTHROMBIN TIME PATIENT 15.9 SEC (11.7-14.0)
[2016-10-13] MEDS: CEFTRIAXONE SODIUM 1 GM in IV NORMAL SALINE 50ML 50 ML IV SCH (20:20)
[2016-10-13] MEDS: IV DEXTROSE 5 %-0.45 % NACL 1,000 ML IV SCH (21:00)
[2016-10-13] MEDS: CEFAZOLIN 2GM PREMIX 50 ML IV SCH (21:09)
[2016-10-13] MEDS: CELECOXIB 200 MG CAPSULE PO SCH (21:10)
[2016-10-13] MEDS ORDERED: WARFARIN 5 MG TABLET. PO ONE (21:30)
--- NOTE | 2016-10-14 00:08 | OP ---
DATE OF SURGERY: 10/13/2016 PREOPERATIVE DIAGNOSIS: Severe hip pain status post fall and preexisting DJD, right hip. POSTOPERATIVE DIAGNOSIS: Severe hip pain status post fall and preexisting DJD, right hip. PROCEDURE: Right total hip arthroplasty. SURGEON: Jason Beverly MD. ANESTHESIA: General. ESTIMATED BLOOD LOSS: 300 mL. COMPLICATIONS: None. OPERATIVE INDICATIONS: The patient had had some preexisting right hip pain, but was still functional up until a recent fall, which she states was more like a slide out of her recliner and unfortunately was unable to get up and stand, probably about 3 days on the floor, came in with severe dehydration and urinary tract infection as well as severe hip pain, inability to bear weight on the leg or move to transfer. I had gone over with her the x-rays, which shows severe degenerative change. She actually has some significant degenerative change in the contralateral left hip, which was previously pinned for fracture and also has a leg length discrepancy with the left side short from her previous treatment of the heel hip fracture. I had gone over with her the nonoperative treatment options of possible protected weightbearing with a walker, activity modification, pain medications among others and she stated that although being previously ambulatory, was not able to do anything with the severe debilitating pain and would like it fixed if possible. We talked about the risks, benefits, postoperative course of the total hip arthroplasty, the possibility of infection, medical or other anesthetic complications, leg length discrepancy, instability, premature wear or loosening, blood clot, pulmonary embolism, among others. All her questions were answered and consent was obtained and she agrees to proceed with operative evaluation and treatment. DESCRIPTION OF PROCEDURE: The patient was identified, procedure verified and the patient was placed on the [place] fracture table. After adequate amounts of general anesthesia were administered, all bony prominences were well padded and feet were placed in the traction boots. The right hip was then prepped and draped in standard sterile fashion and after timeout was performed, the patient and procedure identified and verified. Fluoroscopy was used to assess preoperative leg lengths and easily established initial starting incision point. An anterior approach to the hip was carried out. Dissection carried out down to the fascia of the iliotibial band, the iliotibial band was taken laterally. Fascia was taken medially to protect the rectus femoris and overlying structures. Fat pad was excised. The circumflex vessels were cauterized and T incision was made in the hip capsule. A cut was made under fluoroscopic guidance in a napkin ring type fashion to allow access to the femoral head and removal. Femoral head was extremely deformed and oblong in nature. She had significant overgrowth of the acetabulum as well. Reaming was carried out starting at a size 42 through a size 50 where excess osteophytes were removed from the rim of the acetabulum and after adequate bony preparation carried out, a size 52 Continuum trabecular metal cluster hole acetabular liner from Suresh was placed under fluoroscopic and visual guidance. Excellent bite was obtained. A single 50 mm screw was placed superiorly with excellent bite and a trial standard liner was then placed. The right lower extremity was then placed in maximum external rotation where completion of hip capsular release and remaining soft tissue was removed. The pinned hip was then extended and adducted to expose the proximal femur, rat tail rasp was used to ensure the canal was found due to her obesity, the incision had to be extended somewhat proximally to allow access to the femoral canal with a box osteotome and successive size Suresh Avenir broaches up to a size 4. Excellent seating was obtained with the size 4, the calcar region was again trimmed to reflect the seating and trial fitting carried out with a -3.5 and 0-36 mm head. I felt that there was better stability achieved with the 0 and noted that it did increase her leg length just slightly from the preoperative condition, but was necessary for stability. Trial components were then removed. Thorough irrigation carried out with normal saline solution. A standard acetabular liner was placed and tapped into place to lock the highly cross linked polyethylene 52 x 36 mm inner diameter Suresh liner and Avenir standard size 4 implant was impacted into place with excellent fit and a +0 ceramic head was tapped in place to engage the Jasper taper on reduction, equivalent stability and leg lengths were noted. Thorough irrigation carried out with normal saline solution. Hip capsule was repaired with #5 Ethibond. The fascia was closed with #1 Vicryl in a running fashion. Subcutaneous closure with layered Vicryl and skin closure with nylon 2-0 in a vertical mattress fashion. Sterile dressings were applied. The patient was extubated and transferred to postop holding in stable condition having tolerated the procedure well. JASON BEVERLY MD DR: TOSHA/andriy JOB#: [id number] / [id number]
[2016-10-14 03:00] VITALS: BP 124/65
[2016-10-14] MEDS: CEFAZOLIN 2GM PREMIX 50 ML IV SCH ×2 (03:09→08:08)
[2016-10-14 03:30] LABS: BASO % 0 % (0-3); EOS % 0 % (0-3); HEMATOCRIT 28.7 % (36.0-47.0); LYMPH # 0.6 x10^3/uL (1.0-4.8); LYMPH % 4 % (24-48); MEAN CORPUSCULAR HEMOGLOBIN 26 pg (25-35); MEAN CORPUSCULAR HGB CONC 31 g/dL (31-37); MEAN CORPUSCULAR VOLUME 83 fL (79-100); MONO % 3 % (0-9); NEUT % 93 % (31-73); PLATELET COUNT 78 x10^3/uL (140-400); RED BLOOD COUNT 3.46 x10^6/uL (3.50-5.40); RED CELL DISTRIBUTION WIDTH 14.7 % (11.5-14.5); WHITE BLOOD COUNT 16.8 x10^3/uL (4.0-11.0)
[2016-10-14 03:42] LABS: CALCIUM 8.7 mg/dL (8.5-10.1); CREATININE 1.3 mg/dL (0.6-1.0); GFR 48.7; POTASSIUM 3.8 mmol/L (3.5-5.1)
[2016-10-14 03:54] LABS: INR 1.4 (0.8-1.1); PROTHROMBIN TIME PATIENT 16.3 SEC (11.7-14.0)
[2016-10-14 03:58] LABS: CKMB INDEX 0.5 % (0-4); CKMB MASS 3.5 ng/mL (0.0-3.6)
[2016-10-14] MEDS ORDERED: CEFAZOLIN 2GM PREMIX 50 ML IV PRN (06:00)
[2016-10-14] MEDS ORDERED: MAGNESIUM HYDROXIDE 2,400 MG/30 ML ORAL.SUSP. PO PRN (06:00)
[2016-10-14] MEDS ORDERED: MORPHINE SULFATE 5 MG, KETOROLAC TROMETHAMINE 30 MG, ROPIVacaine 0.5% PF 60 ML, EPINEPH... INT ART ONE ×5 (06:00)
--- NOTE | 2016-10-14 06:57 | CONS ---
DATE OF CONSULTATION: 10/13/2016 REASON FOR CONSULTATION: Right hip pain with reported fracture. HISTORY OF PRESENT ILLNESS: The patient is a 71-year-old female who lives at home, was previously independently ambulatory, who slid out of her recliner down to the floor, but could not get up. She states that several people were following to check on her and she noticed the phone was ringing, but finally was brought in when some sabianism members and police came to check on her and she was brought in by EMS. She was originally diagnosed with a right hip fracture and severe dehydration with urinary tract infection and does not recall how she fell, but has severe right hip pain, inability to bear weight or move the hip at all to ambulate or transfer. She had had preexisting right hip pain, but not as severe and could certainly ambulate prior to this. PAST MEDICAL HISTORY: Significant for preexisting hip pain, cataracts and arthritis. PAST SURGICAL HISTORY: Significant for a left hip pinning many years ago. Cataract surgery. FAMILY HISTORY: Hypertension. SOCIAL HISTORY: She denies smoking, alcohol or drug use and lives independently. REVIEW OF SYSTEMS: Denies any current chest pain, shortness of breath, focal weakness, numbness, or tingling. She did have recent cataract surgery and was scheduled for a followup tomorrow. PHYSICAL EXAMINATION: GENERAL: A pleasant, cooperative 71-year-old female, alert and oriented, no acute distress, good historian. HEENT: She has a small bruise on the left side of her face. No tenderness over her neck. She has good range of motion of shoulder, elbow and wrist bilaterally with good alignment motion and stability on all of her joints. On examination of the right hip, she has severe pain with any motion of the right hip, well-healed incision from previous pinning of her left hip and appears to be slightly shortened leg length on the left compared to the right, which is chronic for her. She has reasonable motion of the left hip with no significant pain except on very extreme motion, which is mildly limited. She has good knee and ankle range of motion, alignment, stability bilaterally with intact motor function, distal pulses, sensation, reflexes and skin in both lower extremities throughout. She has a Russell catheter present. IMAGING: X-rays on my examination show an AP of the pelvis with a previous internally fixed left femoral neck fracture that is healed slightly shortened. She has severe degenerative change of both hip joints the right is a bit worse than the left, but I do not necessarily see a hip fracture present that actually confirmed in the radiology report. IMPRESSION: Right hip severe degenerative joint disease with intractable pain, inability to bear weight. TREATMENT PLAN: I went over with her the nonoperative treatment measures of pain control, limited mobility and observation. She was able to get along well with previous pain, but this is extremely severe and even with pain medications, unable to really move, put weight on, or get out of bed whatsoever. We did talk about the relative risks of immobility versus total hip arthroplasty to replace the joint, the possibility of leg length discrepancy, instability, infection, nerve or blood vessel damage, medical or other anesthetic complications among others blood clots. She does wish to proceed with surgical evaluation and treatment and that was formally scheduled about noon today after medical evaluation and clearance following treatment for dehydration and other medical issues. ZAKI MEZA MD DR: TOSHA/andriy JOB#: [id number] / [id number]
[2016-10-14 07:00] VITALS: BP 137/72
[2016-10-14] MEDS: IV DEXTROSE 5 %-0.45 % NACL 1,000 ML IV SCH ×4 (07:00→22:58)
[2016-10-14] MEDS: FERROUS SULFATE 325 MG TABLET PO SCH ×2 (08:10→17:03)
[2016-10-14] MEDS: CELECOXIB 200 MG CAPSULE PO SCH ×2 (08:10→21:05)
[2016-10-14] MEDS: MULTIVITAMIN with MINERAL TABLET. PO SCH (08:12)
[2016-10-14] MEDS: SENNOSIDES/DOCUSATE 8.6/50MG TABLET. PO SCH (08:13)
--- NOTE | 2016-10-14 08:34 | RAD ---
Portable pelvis, 10/13/2016: History: Postop evaluation Comparison is made to a study from 10/12/2016. There has been interval placement of a right total hip prosthesis in satisfactory position. Again noted are surgical pins related to an old left hip fracture with severe degenerative change at the left hip joint. An IUD is projected over the mid pelvis on the left. There is no evidence of a retained surgical instrument, needle or radiopaque sponge on this exam. IMPRESSION: Interval placement of a right total hip prosthesis in satisfactory position.
--- NOTE | 2016-10-14 09:17 | PDOC ---
PROGRESS NOTES Subjective Subjective Problems overnight: Hip pain well-controlled has not been up and around with physical therapy yet no significant complaints Objective Vital Signs Vital Signs Date Time Temp Pulse Resp B/P Pulse Ox O2 Delivery O2 Flow Rate FiO2 10/14/16 07:00 97.7 93 16 137/72 97 Nasal Cannula 2.0 97.7 Physical Exam On exam incisions clean dry and intact distal neurovascular status intact Labs Laboratory Tests Test 10/12/16 15:50 10/12/16 16:10 10/13/16 04:35 10/13/16 19:30 White Blood Count 30.6x10^3/uL (4.0-11.0) 23.1x10^3/uL (4.0-11.0) Red Blood Count 4.51x10^6/uL (3.50-5.40) 4.04x10^6/uL (3.50-5.40) Hemoglobin 11.9g/dL (12.0-15.5) 10.7g/dL (12.0-15.5) Hematocrit 37.3% (36.0-47.0) 33.7% (36.0-47.0) Mean Corpuscular Volume 83fL (79-100) 83fL (79-100) Mean Corpuscular Hemoglobin 26pg (25-35) 27pg (25-35) Mean Corpuscular Hemoglobin Concent 32g/dL (31-37) 32g/dL (31-37) Red Cell Distribution Width 14.3% (11.5-14.5) 14.5% (11.5-14.5) Platelet Count 109x10^3/uL (140-400) 83x10^3/uL (140-400) Neutrophils (%) (Auto) 95% (31-73) 94% (31-73) Lymphocytes (%) (Auto) 2% (24-48) 3% (24-48) Monocytes (%) (Auto) 2% (0-9) 3% (0-9) Eosinophils (%) (Auto) 1% (0-3) 0% (0-3) Basophils (%) (Auto) 0% (0-3) 0% (0-3) Neutrophils # (Auto) 29.2x10^3uL (1.8-7.7) 21.6x10^3uL (1.8-7.7) Lymphocytes # (Auto) 0.5x10^3/uL (1.0-4.8) 0.7x10^3/uL (1.0-4.8) Monocytes # (Auto) 0.6x10^3/uL (0.0-1.1) 0.7x10^3/uL (0.0-1.1) Eosinophils # (Auto) 0.3x10^3/uL (0.0-0.7) 0.1x10^3/uL (0.0-0.7) Basophils # (Auto) 0.1x10^3/uL (0.0-0.2) 0.0x10^3/uL (0.0-0.2) Segmented Neutrophils % 90% (35-66) Band Neutrophils % 10% (0-9) Metamyelocytes % 0% (0-0) Platelet Estimate Decreased (ADEQUATE) Sodium Level 148mmol/L (136-145) 148mmol/L (136-145) Potassium Level 3.6mmol/L (3.5-5.1) 3.0mmol/L (3.5-5.1) Chloride Level 107mmol/L (98-107) 112mmol/L (98-107) Carbon Dioxide Level 23mmol/L (21-32) 23mmol/L (21-32) Anion Gap 18 (6-14) 13 (6-14) Blood Urea Nitrogen 57mg/dL (7-20) 47mg/dL (7-20) Creatinine 1.7mg/dL (0.6-1.0) 1.4mg/dL (0.6-1.0) Estimated GFR (Cockcroft-Gault) 29.5 44.7 BUN/Creatinine Ratio 34 (6-20) Glucose Level 88mg/dL (70-99) 82mg/dL (70-99) Lactic Acid Level 2.9mmol/L (0.4-2.0) Calcium Level 9.9mg/dL (8.5-10.1) 9.2mg/dL (8.5-10.1) Total Bilirubin 1.2mg/dL (0.2-1.0) Aspartate Amino Transf (AST/SGOT) 104U/L (15-37) Alanine Aminotransferase (ALT/SGPT) 49U/L (14-59) Alkaline Phosphatase 132U/L (46-116) Creatine Kinase 2102U/L (26-192) Total Protein 7.7g/dL (6.4-8.2) Albumin 2.8g/dL (3.4-5.0) Albumin/Globulin Ratio 0.6 (1.0-1.7) Urine Collection Type Unknown Urine Color Red Urine Clarity Turbid Urine pH 5.5 Urine Specific [place] 1.015 Urine Protein 100mg/dL (NEG-TRACE) Urine Glucose (UA) Negativemg/dL (NEG) Urine Ketones (Stick) 15mg/dL (NEG) Urine Blood Large (NEG) Urine Nitrite Positive (NEG) Urine Bilirubin Negative (NEG) Urine Urobilinogen Dipstick 1.0mg/dL (0.2 mg/dL) Urine Leukocyte Esterase Large (NEG) Urine RBC Tntc/HPF (0-2) Urine WBC >40/HPF (0-4) Urine Squamous Epithelial Cells Few/LPF Urine Bacteria Moderate/HPF (0-FEW) Prothrombin Time 15.9SEC (11.7-14.0) Prothromb Time International Ratio 1.4 (0.8-1.1) Test 10/14/16 03:08 White Blood Count 16.8x10^3/uL (4.0-11.0) Red Blood Count 3.46x10^6/uL (3.50-5.40) Hemoglobin 9.0g/dL (12.0-15.5) Hematocrit 28.7% (36.0-47.0) Mean Corpuscular Volume 83fL (79-100) Mean Corpuscular Hemoglobin 26pg (25-35) Mean Corpuscular Hemoglobin Concent 31g/dL (31-37) Red Cell Distribution Width 14.7% (11.5-14.5) Platelet Count 78x10^3/uL (140-400) Neutrophils (%) (Auto) 93% (31-73) Lymphocytes (%) (Auto) 4% (24-48) Monocytes (%) (Auto) 3% (0-9) Eosinophils (%) (Auto) 0% (0-3) Basophils (%) (Auto) 0% (0-3) Neutrophils # (Auto) 15.7x10^3uL (1.8-7.7) Lymphocytes # (Auto) 0.6x10^3/uL (1.0-4.8) Monocytes # (Auto) 0.6x10^3/uL (0.0-1.1) Eosinophils # (Auto) 0.0x10^3/uL (0.0-0.7) Basophils # (Auto) 0.0x10^3/uL (0.0-0.2) Prothrombin Time 16.3SEC (11.7-14.0) Prothromb Time International Ratio 1.4 (0.8-1.1) Sodium Level 145mmol/L (136-145) Potassium Level 3.8mmol/L (3.5-5.1) Chloride Level 111mmol/L (98-107) Carbon Dioxide Level 23mmol/L (21-32) Anion Gap 11 (6-14) Blood Urea Nitrogen 34mg/dL (7-20) Creatinine 1.3mg/dL (0.6-1.0) Estimated GFR (Cockcroft-Gault) 48.7 Glucose Level 145mg/dL (70-99) Lactic Acid Level 1.2mmol/L (0.4-2.0) Calcium Level 8.7mg/dL (8.5-10.1) Creatine Kinase 700U/L (26-192) Creatine Kinase MB (Mass) 3.5ng/mL (0.0-3.6) Creatine Kinase MB Relative Index 0.5% (0-4) Laboratory Tests Test 10/13/16 19:30 10/14/16 03:08 Prothrombin Time 15.9SEC (11.7-14.0) 16.3SEC (11.7-14.0) Prothromb Time International Ratio 1.4 (0.8-1.1) 1.4 (0.8-1.1) White Blood Count 16.8x10^3/uL (4.0-11.0) Red Blood Count 3.46x10^6/uL (3.50-5.40) Hemoglobin 9.0g/dL (12.0-15.5) Hematocrit 28.7% (36.0-47.0) Mean Corpuscular Volume 83fL (79-100) Mean Corpuscular Hemoglobin 26pg (25-35) Mean Corpuscular Hemoglobin Concent 31g/dL (31-37) Red Cell Distribution Width 14.7% (11.5-14.5) Platelet Count 78x10^3/uL (140-400) Neutrophils (%) (Auto) 93% (31-73) Lymphocytes (%) (Auto) 4% (24-48) Monocytes (%) (Auto) 3% (0-9) Eosinophils (%) (Auto) 0% (0-3) Basophils (%) (Auto) 0% (0-3) Neutrophils # (Auto) 15.7x10^3uL (1.8-7.7) Lymphocytes # (Auto) 0.6x10^3/uL (1.0-4.8) Monocytes # (Auto) 0.6x10^3/uL (0.0-1.1) Eosinophils # (Auto) 0.0x10^3/uL (0.0-0.7) Basophils # (Auto) 0.0x10^3/uL (0.0-0.2) Sodium Level 145mmol/L (136-145) Potassium Level 3.8mmol/L (3.5-5.1) Chloride Level 111mmol/L (98-107) Carbon Dioxide Level 23mmol/L (21-32) Anion Gap 11 (6-14) Blood Urea Nitrogen 34mg/dL (7-20) Creatinine 1.3mg/dL (0.6-1.0) Estimated GFR (Cockcroft-Gault) 48.7 Glucose Level 145mg/dL (70-99) Lactic Acid Level 1.2mmol/L (0.4-2.0) Calcium Level 8.7mg/dL (8.5-10.1) Creatine Kinase 700U/L (26-192) Creatine Kinase MB (Mass) 3.5ng/mL (0.0-3.6) Creatine Kinase MB Relative Index 0.5% (0-4) Imaging Postop x-rays show excellent position of a right total hip arthroplasty Assessment Assessment POD# [1], S/P [right total hip] Problems: Plan Plan of Care Mobilize weightbearing as tolerated no hip precautions due to anterior approach Continue treatment for urinary tract infection be on prophylactic antibiotics for hip procedure ZAKI MEZA MD Oct 14, 2016 09:17
[2016-10-14 11:00] VITALS: BP 119/44
--- NOTE | 2016-10-14 14:14 | PDOC ---
PROGRESS NOTES Chief Complaint Chief Complaint 1. Status post fall at home. 2. 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 + UA , asymptomatic 4. Acute kidney injury vasomotor, dehydration 5. Severe dehydration. 6. Elevated CPK. 7. Leukocytosis __reactive likely__. 8. hypernatremia 9. hypokalemia 10. high LA, 2/2 dehydration likely plan: 1. ortho fu 2. cont IVF , change to 1/2 NS 3. fu ucx, cont ceftraxone for now 4. ptot post op 5. labs tmr SW for rehab later this week hopefully abdirahman contreras History of Present Illness History of Present Illness healthy, independency fell from chair, on floor for 3ds good urine Vitals Vitals Vital Signs Date Time Temp Pulse Resp B/P Pulse Ox O2 Delivery O2 Flow Rate FiO2 10/14/16 12:40 Room Air 10/14/16 11:35 2.0 10/14/16 11:00 98.2 94 16 119/44 100 98.2 Physical Exam General: Alert, Oriented X3, Cooperative Heart: Regular rate, Normal S1, Normal S2 Lungs: Clear Abdomen: Normal bowel sounds, Soft Extremities: No clubbing, No cyanosis Skin: No rashes Labs LABS Laboratory Tests Test 10/13/16 19:30 10/14/16 03:08 Prothrombin Time 15.9SEC (11.7-14.0) 16.3SEC (11.7-14.0) Prothromb Time International Ratio 1.4 (0.8-1.1) 1.4 (0.8-1.1) White Blood Count 16.8x10^3/uL (4.0-11.0) Red Blood Count 3.46x10^6/uL (3.50-5.40) Hemoglobin 9.0g/dL (12.0-15.5) Hematocrit 28.7% (36.0-47.0) Mean Corpuscular Volume 83fL (79-100) Mean Corpuscular Hemoglobin 26pg (25-35) Mean Corpuscular Hemoglobin Concent 31g/dL (31-37) Red Cell Distribution Width 14.7% (11.5-14.5) Platelet Count 78x10^3/uL (140-400) Neutrophils (%) (Auto) 93% (31-73) Lymphocytes (%) (Auto) 4% (24-48) Monocytes (%) (Auto) 3% (0-9) Eosinophils (%) (Auto) 0% (0-3) Basophils (%) (Auto) 0% (0-3) Neutrophils # (Auto) 15.7x10^3uL (1.8-7.7) Lymphocytes # (Auto) 0.6x10^3/uL (1.0-4.8) Monocytes # (Auto) 0.6x10^3/uL (0.0-1.1) Eosinophils # (Auto) 0.0x10^3/uL (0.0-0.7) Basophils # (Auto) 0.0x10^3/uL (0.0-0.2) Sodium Level 145mmol/L (136-145) Potassium Level 3.8mmol/L (3.5-5.1) Chloride Level 111mmol/L (98-107) Carbon Dioxide Level 23mmol/L (21-32) Anion Gap 11 (6-14) Blood Urea Nitrogen 34mg/dL (7-20) Creatinine 1.3mg/dL (0.6-1.0) Estimated GFR (Cockcroft-Gault) 48.7 Glucose Level 145mg/dL (70-99) Lactic Acid Level 1.2mmol/L (0.4-2.0) Calcium Level 8.7mg/dL (8.5-10.1) Creatine Kinase 700U/L (26-192) Creatine Kinase MB (Mass) 3.5ng/mL (0.0-3.6) Creatine Kinase MB Relative Index 0.5% (0-4) Review of Systems Review of Systems no fever, chills, sob or chest pain Assessment and Plan Assessmemt and Plan Problems Medical Problems: (1) Closed right hip fracture Status: Acute (2) Sepsis due to urinary tract infection Status: Acute Problems: Comment Review of Relevant I have reviewed the following items selena (where applicable) has been applied. Labs Laboratory Tests Test 10/12/16 15:50 10/12/16 16:10 10/13/16 04:35 10/13/16 19:30 White Blood Count 30.6x10^3/uL (4.0-11.0) 23.1x10^3/uL (4.0-11.0) Red Blood Count 4.51x10^6/uL (3.50-5.40) 4.04x10^6/uL (3.50-5.40) Hemoglobin 11.9g/dL (12.0-15.5) 10.7g/dL (12.0-15.5) Hematocrit 37.3% (36.0-47.0) 33.7% (36.0-47.0) Mean Corpuscular Volume 83fL (79-100) 83fL (79-100) Mean Corpuscular Hemoglobin 26pg (25-35) 27pg (25-35) Mean Corpuscular Hemoglobin Concent 32g/dL (31-37) 32g/dL (31-37) Red Cell Distribution Width 14.3% (11.5-14.5) 14.5% (11.5-14.5) Platelet Count 109x10^3/uL (140-400) 83x10^3/uL (140-400) Neutrophils (%) (Auto) 95% (31-73) 94% (31-73) Lymphocytes (%) (Auto) 2% (24-48) 3% (24-48) Monocytes (%) (Auto) 2% (0-9) 3% (0-9) Eosinophils (%) (Auto) 1% (0-3) 0% (0-3) Basophils (%) (Auto) 0% (0-3) 0% (0-3) Neutrophils # (Auto) 29.2x10^3uL (1.8-7.7) 21.6x10^3uL (1.8-7.7) Lymphocytes # (Auto) 0.5x10^3/uL (1.0-4.8) 0.7x10^3/uL (1.0-4.8) Monocytes # (Auto) 0.6x10^3/uL (0.0-1.1) 0.7x10^3/uL (0.0-1.1) Eosinophils # (Auto) 0.3x10^3/uL (0.0-0.7) 0.1x10^3/uL (0.0-0.7) Basophils # (Auto) 0.1x10^3/uL (0.0-0.2) 0.0x10^3/uL (0.0-0.2) Segmented Neutrophils % 90% (35-66) Band Neutrophils % 10% (0-9) Metamyelocytes % 0% (0-0) Platelet Estimate Decreased (ADEQUATE) Sodium Level 148mmol/L (136-145) 148mmol/L (136-145) Potassium Level 3.6mmol/L (3.5-5.1) 3.0mmol/L (3.5-5.1) Chloride Level 107mmol/L (98-107) 112mmol/L (98-107) Carbon Dioxide Level 23mmol/L (21-32) 23mmol/L (21-32) Anion Gap 18 (6-14) 13 (6-14) Blood Urea Nitrogen 57mg/dL (7-20) 47mg/dL (7-20) Creatinine 1.7mg/dL (0.6-1.0) 1.4mg/dL (0.6-1.0) Estimated GFR (Cockcroft-Gault) 29.5 44.7 BUN/Creatinine Ratio 34 (6-20) Glucose Level 88mg/dL (70-99) 82mg/dL (70-99) Lactic Acid Level 2.9mmol/L (0.4-2.0) Calcium Level 9.9mg/dL (8.5-10.1) 9.2mg/dL (8.5-10.1) Total Bilirubin 1.2mg/dL (0.2-1.0) Aspartate Amino Transf (AST/SGOT) 104U/L (15-37) Alanine Aminotransferase (ALT/SGPT) 49U/L (14-59) Alkaline Phosphatase 132U/L (46-116) Creatine Kinase 2102U/L (26-192) Total Protein 7.7g/dL (6.4-8.2) Albumin 2.8g/dL (3.4-5.0) Albumin/Globulin Ratio 0.6 (1.0-1.7) Urine Collection Type Unknown Urine Color Red Urine Clarity Turbid Urine pH 5.5 Urine Specific [place] 1.015 Urine Protein 100mg/dL (NEG-TRACE) Urine Glucose (UA) Negativemg/dL (NEG) Urine Ketones (Stick) 15mg/dL (NEG) Urine Blood Large (NEG) Urine Nitrite Positive (NEG) Urine Bilirubin Negative (NEG) Urine Urobilinogen Dipstick 1.0mg/dL (0.2 mg/dL) Urine Leukocyte Esterase Large (NEG) Urine RBC Tntc/HPF (0-2) Urine WBC >40/HPF (0-4) Urine Squamous Epithelial Cells Few/LPF Urine Bacteria Moderate/HPF (0-FEW) Prothrombin Time 15.9SEC (11.7-14.0) Prothromb Time International Ratio 1.4 (0.8-1.1) Test 10/14/16 03:08 White Blood Count 16.8x10^3/uL (4.0-11.0) Red Blood Count 3.46x10^6/uL (3.50-5.40) Hemoglobin 9.0g/dL (12.0-15.5) Hematocrit 28.7% (36.0-47.0) Mean Corpuscular Volume 83fL (79-100) Mean Corpuscular Hemoglobin 26pg (25-35) Mean Corpuscular Hemoglobin Concent 31g/dL (31-37) Red Cell Distribution Width 14.7% (11.5-14.5) Platelet Count 78x10^3/uL (140-400) Neutrophils (%) (Auto) 93% (31-73) Lymphocytes (%) (Auto) 4% (24-48) Monocytes (%) (Auto) 3% (0-9) Eosinophils (%) (Auto) 0% (0-3) Basophils (%) (Auto) 0% (0-3) Neutrophils # (Auto) 15.7x10^3uL (1.8-7.7) Lymphocytes # (Auto) 0.6x10^3/uL (1.0-4.8) Monocytes # (Auto) 0.6x10^3/uL (0.0-1.1) Eosinophils # (Auto) 0.0x10^3/uL (0.0-0.7) Basophils # (Auto) 0.0x10^3/uL (0.0-0.2) Prothrombin Time 16.3SEC (11.7-14.0) Prothromb Time International Ratio 1.4 (0.8-1.1) Sodium Level 145mmol/L (136-145) Potassium Level 3.8mmol/L (3.5-5.1) Chloride Level 111mmol/L (98-107) Carbon Dioxide Level 23mmol/L (21-32) Anion Gap 11 (6-14) Blood Urea Nitrogen 34mg/dL (7-20) Creatinine 1.3mg/dL (0.6-1.0) Estimated GFR (Cockcroft-Gault) 48.7 Glucose Level 145mg/dL (70-99) Lactic Acid Level 1.2mmol/L (0.4-2.0) Calcium Level 8.7mg/dL (8.5-10.1) Creatine Kinase 700U/L (26-192) Creatine Kinase MB (Mass) 3.5ng/mL (0.0-3.6) Creatine Kinase MB Relative Index 0.5% (0-4) Laboratory Tests Test 10/13/16 19:30 10/14/16 03:08 Prothrombin Time 15.9SEC (11.7-14.0) 16.3SEC (11.7-14.0) Prothromb Time International Ratio 1.4 (0.8-1.1) 1.4 (0.8-1.1) White Blood Count 16.8x10^3/uL (4.0-11.0) Red Blood Count 3.46x10^6/uL (3.50-5.40) Hemoglobin 9.0g/dL (12.0-15.5) Hematocrit 28.7% (36.0-47.0) Mean Corpuscular Volume 83fL (79-100) Mean Corpuscular Hemoglobin 26pg (25-35) Mean Corpuscular Hemoglobin Concent 31g/dL (31-37) Red Cell Distribution Width 14.7% (11.5-14.5) Platelet Count 78x10^3/uL (140-400) Neutrophils (%) (Auto) 93% (31-73) Lymphocytes (%) (Auto) 4% (24-48) Monocytes (%) (Auto) 3% (0-9) Eosinophils (%) (Auto) 0% (0-3) Basophils (%) (Auto) 0% (0-3) Neutrophils # (Auto) 15.7x10^3uL (1.8-7.7) Lymphocytes # (Auto) 0.6x10^3/uL (1.0-4.8) Monocytes # (Auto) 0.6x10^3/uL (0.0-1.1) Eosinophils # (Auto) 0.0x10^3/uL (0.0-0.7) Basophils # (Auto) 0.0x10^3/uL (0.0-0.2) Sodium Level 145mmol/L (136-145) Potassium Level 3.8mmol/L (3.5-5.1) Chloride Level 111mmol/L (98-107) Carbon Dioxide Level 23mmol/L (21-32) Anion Gap 11 (6-14) Blood Urea Nitrogen 34mg/dL (7-20) Creatinine 1.3mg/dL (0.6-1.0) Estimated GFR (Cockcroft-Gault) 48.7 Glucose Level 145mg/dL (70-99) Lactic Acid Level 1.2mmol/L (0.4-2.0) Calcium Level 8.7mg/dL (8.5-10.1) Creatine Kinase 700U/L (26-192) Creatine Kinase MB (Mass) 3.5ng/mL (0.0-3.6) Creatine Kinase MB Relative Index 0.5% (0-4) Medications Current Medications Sodium Chloride 1,000 ml @ 1,000 mls/hr Q1H IV Last administered on 10/12/16 16:11; Start 10/12/16 at 15:51; Stop 10/12/16 at 16:50; Status DC Sodium Chloride 1,000 ml @ 1,000 mls/hr 1X ONCE IV Last administered on 18:23; Start 10/12/16 at 17:30; Stop 10/12/16 at 18:29; Status DC Ceftriaxone Sodium (Rocephin 1gm Ivpb For Omni) 50 ml @ 100 mls/hr 1X ONCE IV Last administered on 10/12/16 17:53; Start 10/12/16 at 17:30; Stop 10/12/16 at 17:59; Status DC Ondansetron HCl (Zofran) 4 mg PRN Q8HRS PRN IV NAUSEA/VOMITING Last administered on 10/12/16 23:00; Start 10/12/16 at 17:45; Stop 10/13/16 at 16:16 ; Status DC Fentanyl Citrate 25 mcg 25 mcg PRN Q2HR PRN IV PAIN; Start 10/12/16 at 17:45; Stop 10/13/16 at 17:44; Status DC Sodium Chloride 1,000 ml @ 100 mls/hr Q10H IV ; Start 10/12/16 at 17:33; Stop 10/12/16 at 22:18; Status DC Sodium Chloride (Iv Sodium Chloride 0.9% 1000ml Bag) 1,000 ml @ 125 mls/hr Q8H IV Last administered on 10/13/16 11:03; Start 10/12/16 at 19:30; Stop at 12:08; Status DC Acetaminophen (Tylenol) 325 mg PRN Q6HRS PRN PO MILD PAIN / TEMP; Start at 19:30; Stop 10/13/16 at 18:22; Status DC Acetaminophen/ Hydrocodone Bitart (Lortab 5/325) 1 tab PRN Q6HRS PRN PO MODERATE TO SEVERE PAIN Last administered on 10/12/16 23:01; Start 10/12/16 at 19:30; Stop 10/13/16 at 18:24; Status DC Hydralazine HCl (Apresoline) 10 mg PRN Q4HRS PRN IVP ELEVATED BP, SEE COMMENTS ; Start 10/12/16 at 19:30 Ondansetron HCl (Zofran) 4 mg PRN Q8HRS PRN IV NAUSEA/VOMITING; Start 10/12/16 at 19:30; Stop 10/13/16 at 16:16; Status DC Albuterol Sulfate 2.5 mg 2.5 mg PRN Q4HRS PRN NEB SHORTNESS OF BREATH; Start at 19:30 Ceftriaxone Sodium 1 gm/ Sodium Chloride 50 ml @ 100 mls/hr Q24H IV Last administered on 10/13/16 20:20; Start 10/13/16 at 18:00 Sodium Chloride 1,000 ml @ 125 mls/hr Q8H IV Last administered on 10/13/16 12 :23; Start 10/13/16 at 13:00; Stop 10/13/16 at 20:59; Status DC Potassium Chloride (KCl Premix 10meq) 100 ml @ 100 mls/hr Q1H IV Last administered on 10/13/16 22:44; Start 10/13/16 at 13:00; Stop 10/13/16 at 16:59 ; Status DC Famotidine (Pepcid) 20 mg STK-MED ONCE .ROUTE ; Start 10/13/16 at 14:06; Stop at 14:07; Status DC Ondansetron HCl 4 mg 4 mg STK-MED ONCE .ROUTE ; Start 10/13/16 at 14:06; Stop at 14:07; Status DC Propofol (Diprivan) 20 ml @ As Directed STK-MED ONCE IV ; Start 10/13/16 at 14: 06; Stop 10/13/16 at 14:07; Status DC Lidocaine HCl 100 mg STK-MED ONCE .ROUTE ; Start 10/13/16 at 14:06; Stop at 14:07; Status DC Fentanyl Citrate (Fentanyl 2ml Vial) 100 mcg STK-MED ONCE .ROUTE ; Start at 14:06; Stop 10/13/16 at 14:07; Status DC Rocuronium Pollok 50 mg 50 mg STK-MED ONCE .ROUTE ; Start 10/13/16 at 14:06; Stop 10/13/16 at 14:07; Status DC Morphine Sulfate 5 mg/Ketorolac Tromethamine 30 mg/Ropivacaine 60 ml/ Epinephrine HCl 0.5 mg/Sodium Chloride 100.5 ml @ 100.5 mls/ hr 1X PERIOP ONCE INT ART ; Start 10/14/16 at 06:00; Stop 10/14/16 at 06:00; Status DC Lactated Ringer's 1,000 ml @ 75 mls/hr 1X ONCE IV Last administered on 14:30; Start 10/13/16 at 14:30; Stop 10/14/16 at 03:49; Status DC Morphine Sulfate 5 mg/Ketorolac Tromethamine 30 mg/Ropivacaine 60 ml/ Epinephrine HCl 0.5 mg/Sodium Chloride 100.5 ml @ 100.5 mls/ hr 1X PERIOP ONCE INT ART Last administered on 10/13/16 15:22; Start 10/13/16 at 14:30; Stop 10/13/16 at 15:37; Status DC Cefazolin Sodium/ Dextrose 50 ml @ As Directed STK-MED ONCE IV ; Start 10/13/16 at 14:35; Stop 10/13/16 at 14:36; Status DC Cefazolin Sodium/ Dextrose (Ancef 2gm Premix) 50 ml @ 100 mls/hr 1X PREOP PRN IV Pre op Last administered on 10/13/16 15:04; Start 10/14/16 at 06:00; Stop at 18:00 Ondansetron HCl (Zofran) 4 mg PRN Q6HRS PRN IV NAUSEA/VOMITING; Start 10/13/16 at 15:30 Fentanyl Citrate (Fentanyl 2ml Vial) 100 mcg STK-MED ONCE .ROUTE ; Start at 15:44; Stop 10/13/16 at 15:45; Status DC Fentanyl Citrate (Fentanyl 2ml Vial) 100 mcg STK-MED ONCE .ROUTE ; Start at 16:47; Stop 10/13/16 at 16:48; Status DC Desflurane (Suprane) 90 ml STK-MED ONCE IH ; Start 10/13/16 at 16:49; Stop 10/13 at 16:50; Status DC Fentanyl Citrate (Fentanyl 2ml Vial) 50 mcg PRN Q5MIN PRN IV Acute Pain Last administered on 10/13/16 18:27; Start 10/13/16 at 18:15; Stop 10/13/16 at 23:59 ; Status DC Morphine Sulfate 4 mg PRN Q10MIN PRN IV Moderate Pain; Start 10/13/16 at 18:15 ; Stop 10/13/16 at 23:59; Status DC Hydromorphone HCl (Dilaudid) 0.4 mg PRN Q10MIN PRN IV Moderate to severe pain; Start 10/13/16 at 18:15; Stop 10/13/16 at 23:59; Status DC Meperidine HCl (Demerol) 12.5 mg PRN Q5MIN PRN IV SHIVERING; Start 10/13/16 at 18:15; Stop 10/13/16 at 23:59; Status DC Prochlorperazine Edisylate (Compazine) 5 mg PRN Q6HRS PRN IV Nausea/Vomiting, 1st Choice; Start 10/13/16 at 18:15; Stop 10/13/16 at 23:59; Status DC Diphenhydramine HCl (Benadryl) 12.5 mg PRN Q2HR PRN IV ITCHING; Start 10/13/16 at 18:15; Stop 10/13/16 at 23:59; Status DC Acetaminophen/ Hydrocodone Bitart (Lortab 7.5/325) 1 tab PRN Q3HRS PRN PO PAIN ; Start 10/13/16 at 18:15 Acetaminophen/ Hydrocodone Bitart (Lortab 10/325) 1 tab PRN Q3HRS PRN PO PAIN; Start 10/13/16 at 18:15 Tramadol HCl (Ultram) 50 mg PRN QID PRN PO PAIN; Start 10/13/16 at 18:15 Oxycodone/ Acetaminophen (Percocet 5/325) 1 tab PRN Q3HRS PRN PO PAIN; Start at 18:15 Oxycodone/ Acetaminophen (Percocet 7.5/ 325) 1 tab PRN Q3HRS PRN PO PAIN Last administered on 10/14/16 11:35; Start 10/13/16 at 18:15 Tramadol HCl (Ultram) 100 mg PRN Q3HRS PRN PO PAIN; Start 10/13/16 at 18:15 Morphine Sulfate 2 mg PRN Q1HR PRN IV PAIN Last administered on 10/14/16 11:34 ; Start 10/13/16 at 18:15 Fentanyl Citrate (Fentanyl 2ml Vial) 25 mcg PRN Q1HR PRN IV PAIN; Start at 18:15 Diphenhydramine HCl (Benadryl) 25 mg PRN Q6HRS PRN IV ITCHING; Start 10/13/16 at 18:15 Warfarin Sodium (Coumadin Per Pharmacy) 1 each PRN DAILY PRN MC SEE COMMENTS Last administered on 10/14/16 11:27; Start 10/13/16 at 18:15 Multivitamins/ Calcium (Thera M Plus) 1 tab DAILY PO Last administered on 08:12; Start 10/14/16 at 09:00 Senna/Docusate Sodium (Senna Plus) 1 tab DAILY PO ; Start 10/14/16 at 09:00 Ferrous Sulfate (Feosol) 325 mg BIDWMEALS PO Last administered on 10/14/16 08: 10; Start 10/14/16 at 08:00 Celecoxib 200 mg 200 mg BID PO Last administered on 10/14/16 08:10; Start at 21:00 Dextrose/Sodium Chloride (Iv D5% - 1/2 NS) 1,000 ml @ 75 mls/hr [id number] IV Last administered on 10/14/16 10:52; Start 10/13/16 at 21:00 Magnesium Hydroxide (Milk Of Magnesia) 2,400 mg 1X PRN PRN PO CONSTIPATION; Start 10/14/16 at 06:00; Stop 10/14/16 at 15:00 Bisacodyl (Dulcolax Supp) 10 mg 1X PRN PRN [place] CONSTIPATION; Start 10/14/16 at 16:00; Stop 10/14/16 at 23:00 Acetaminophen (Tylenol) 650 mg PRN Q4HRS PRN PO MILD PAIN / TEMP; Start at 18:15 Zolpidem Tartrate (Ambien) 5 mg PRN QHS PRN PO INSOMNIA, MAY REPEAT IN 1HR; Start 10/13/16 at 18:15 Calcium Carbonate/ Glycine (Tums) 500 mg PRN QID PRN PO INDIGESTION; Start at 18:15 Morphine Sulfate 4 mg PRN Q1HR PRN IV PAIN; Start 10/13/16 at 18:15 Sodium Chloride (Normal Saline Flush) 10 ml QSHIFT PRN IV AFTER MEDS AND BLOOD DRAWS; Start 10/13/16 at 18:15 Fentanyl Citrate (Fentanyl 2ml Vial) 50 mcg PRN Q1HR PRN IV PAIN; Start at 18:15 Prochlorperazine Edisylate (Compazine) 10 mg PRN Q4HRS PRN IV NAUSEA/VOMITING; Start 10/13/16 at 18:15 Dextrose 12.5 gm 12.5 gm PRN Q15MIN PRN IV SEE COMMENTS; Start 10/13/16 at 18: 15 Cefazolin Sodium/ Dextrose (Ancef 2gm Premix) 50 ml @ 100 mls/hr Q6H IV Last administered on 10/14/16 08:08; Start 10/13/16 at 21:00; Stop 10/14/16 at 09:29 ; Status DC Warfarin Sodium (Coumadin) 5 mg 1X WARF ONCE PO Last administered on 21:35; Start 10/13/16 at 21:30; Stop 10/13/16 at 21:31; Status DC Warfarin Sodium (Coumadin) 5 mg 1X WARF ONCE PO ; Start 10/14/16 at 16:00; Stop 10/14/16 at 16:01 Vitals/I & O Vital Sign - Last 24 Hours 10/13/16 10/13/16 10/13/16 10/13/16 14:41 18:05 18:05 18:20 Temp 98.8 97.9 98.8 97.9 Pulse 107 104 Resp B/P 146/68 157/74 Pulse Ox 94 100 100 O2 Delivery Room Air Room Air Simple Mask Simple Mask O2 Flow Rate 10 10.0 10/13/16 10/13/16 10/13/16 10/13/16 18:20 18:27 18:35 18:50 Temp 97.9 97.9 98.6 97.9 97.9 98.6 Pulse 104 107 99 Resp 18 B/P 153/61 153/61 150/69 Pulse Ox 100 97 96 97 O2 Delivery Simple Mask Nasal Cannula Nasal Cannula Room Air O2 Flow Rate 10.0 2.0 2.0 10/13/16 10/13/16 10/13/16 10/13/16 19:00 19:15 19:30 20:00 Pulse 103 101 104 101 B/P 153/67 144/68 132/55 136/46 O2 Delivery Room Air Room Air Room Air 10/13/16 10/13/16 10/13/16 10/13/16 20:05 20:30 21:00 22:00 Pulse 104 108 101 B/P 109/22 123/60 119/42 O2 Delivery Room Air Room Air Room Air Room Air 10/13/16 10/14/16 10/14/16 10/14/16 23:00 03:00 07:00 07:35 Temp 97.3 98.2 97.7 97.3 98.2 97.7 Pulse 104 92 93 Resp 18 20 16 B/P 101/55 124/65 137/72 Pulse Ox 100 97 97 O2 Delivery Room Air Room Air Nasal Cannula Nasal Cannula O2 Flow Rate 2.0 2.0 10/14/16 10/14/16 10/14/16 10/14/16 11:00 11:34 11:35 12:40 Temp 98.2 98.2 Pulse 94 Resp 16 B/P 119/44 Pulse Ox 100 O2 Delivery Nasal Cannula Nasal Cannula Nasal Cannula Room Air O2 Flow Rate 2.0 2.0 10/14/16 12:40 O2 Delivery Room Air Intake and Output 10/13/16 10/13/16 10/14/16 15:00 23:00 07:00 Intake Total 2050 ml 3790 ml Output Total 1275 ml Balance 775 ml 3790 ml SELAM WALLACE MD Oct 14, 2016 14:14
[2016-10-14 15:00] VITALS: BP 142/71
[2016-10-14] MEDS ORDERED: BISACODYL 10 MG SUPP.RECT PR PRN (16:00)
[2016-10-14] MEDS ORDERED: WARFARIN 5 MG TABLET. PO ONE (16:00)
[2016-10-14] MEDS: CEFTRIAXONE SODIUM 1 GM in IV NORMAL SALINE 50ML 50 ML IV SCH (17:04)
[2016-10-14 19:00] VITALS: BP 79/44
[2016-10-14 23:00] VITALS: BP 145/64
[2016-10-15 03:06] VITALS: BP 120/52
[2016-10-15 07:00] VITALS: BP 114/55
[2016-10-15] MEDS: SENNOSIDES/DOCUSATE 8.6/50MG TABLET. PO SCH (08:36)
[2016-10-15] MEDS: FERROUS SULFATE 325 MG TABLET PO SCH ×2 (08:36→16:42)
[2016-10-15] MEDS: MULTIVITAMIN with MINERAL TABLET. PO SCH (08:36)
[2016-10-15] MEDS: CELECOXIB 200 MG CAPSULE PO SCH ×2 (08:37→20:35)
--- NOTE | 2016-10-15 09:28 | PDOC ---
PROGRESS NOTES Chief Complaint Chief Complaint s/p fall R hip fx ASSESSMENT AND PLAN: 1. R hip fx: s/p THR on 10/[address] Beverly. recovering appropriately 2. Pain control: adequate; on celebrex, tramadol, Morphine PRN (not using) 3. UTI: on empiric ceftriaxone. prelim culture report with GNR 4. ALDO: 2/2 dehydration/vasomotor. slowly improving. cont IVF. suspect underlying CKD as well. 5. Dehydration: severe at admit. improving with IVF 6. Hypernatremia: improving. continue to monitor 7. Hypokalemia: resolved 8. Rhabdomyolysis: improving by labs. monitor 9. Leukocytosis: reactive. improving 10. Anemia: acute bleed on chronic inflammation. currently in safe range. on iron repletion 11. Lacticacidemia: 2/2 muscle breakdown. 12. Prophylaxis: coumadin 13. Dispo: OT/PT, rehab Vitals Vitals Vital Signs Date Time Temp Pulse Resp B/P Pulse Ox O2 Delivery O2 Flow Rate FiO2 10/15/16 07:03 18 Room Air 10/15/16 07:00 98.2 95 114/55 95 2.0 98.2 Physical Exam General: Alert, Oriented X3, Cooperative Heart: Regular rate Lungs: Clear Abdomen: Normal bowel sounds, Soft Extremities: No clubbing, No cyanosis Skin: No rashes Review of Systems Review of Systems feels a bit under the weather. not good sleep last night Comment Review of Relevant DENNIS YIP MD Oct 15, 2016 09:28
[2016-10-15 09:35] LABS: BASO % 0 % (0-3); EOS % 1 % (0-3); HEMOGLOBIN 8.8 g/dL (12.0-15.5); LYMPH # 1.6 x10^3/uL (1.0-4.8); LYMPH % 9 % (24-48); MEAN CORPUSCULAR HEMOGLOBIN 26 pg (25-35); MEAN CORPUSCULAR HGB CONC 33 g/dL (31-37); MEAN CORPUSCULAR VOLUME 81 fL (79-100); MONO % 5 % (0-9); NEUT % 85 % (31-73); PLATELET COUNT 84 x10^3/uL (140-400); RED BLOOD COUNT 3.35 x10^6/uL (3.50-5.40); RED CELL DISTRIBUTION WIDTH 14.7 % (11.5-14.5); WHITE BLOOD COUNT 17.1 x10^3/uL (4.0-11.0)
[2016-10-15 09:44] LABS: INR 2.3 (0.8-1.1); PROTHROMBIN TIME PATIENT 23.7 SEC (11.7-14.0)
[2016-10-15 09:55] LABS: CALCIUM 8.1 mg/dL (8.5-10.1); CREATININE 1.2 mg/dL (0.6-1.0); GFR 53.4; POTASSIUM 3.1 mmol/L (3.5-5.1)
[2016-10-15 10:12] LABS: CKMB INDEX 0.2 % (0-4)
[2016-10-15 11:09] VITALS: BP 138/67
[2016-10-15 15:00] VITALS: BP 139/69
[2016-10-15] MEDS ORDERED: WARFARIN 1 MG TABLET. PO ONE (16:00)
[2016-10-15] MEDS: CEFTRIAXONE SODIUM 1 GM in IV NORMAL SALINE 50ML 50 ML IV SCH (16:59)
--- NOTE | 2016-10-15 17:01 | PDOC ---
PROGRESS NOTES Subjective Subjective Problems overnight: Patient indicates minimal hip pain but also states that she only took a few steps with physical therapy and got up to the chair. She was mainly complaining about her food how she doesn't like to eating and wanted some sherbet for dessert Objective Vital Signs Vital Signs Date Time Temp Pulse Resp B/P Pulse Ox O2 Delivery O2 Flow Rate FiO2 10/15/16 15:00 98.2 108 14 139/69 96 Nasal Cannula 2.0 98.2 Physical Exam On exam her leg lengths are equal she has good hip range of motion intact distal neurovascular status and intact incision Labs Laboratory Tests Test 10/13/16 19:30 10/13/16 23:30 10/14/16 03:08 10/15/16 09:24 Prothrombin Time 15.9SEC (11.7-14.0) 16.3SEC (11.7-14.0) 23.7SEC (11.7-14.0) Prothromb Time International Ratio 1.4 (0.8-1.1) 1.4 (0.8-1.1) 2.3 (0.8-1.1) Nasal Screen MRSA (PCR) Negative (Negative) White Blood Count 16.8x10^3/uL (4.0-11.0) 17.1x10^3/uL (4.0-11.0) Red Blood Count 3.46x10^6/uL (3.50-5.40) 3.35x10^6/uL (3.50-5.40) Hemoglobin 9.0g/dL (12.0-15.5) 8.8g/dL (12.0-15.5) Hematocrit 28.7% (36.0-47.0) 27.0% (36.0-47.0) Mean Corpuscular Volume 83fL (79-100) 81fL (79-100) Mean Corpuscular Hemoglobin 26pg (25-35) 26pg (25-35) Mean Corpuscular Hemoglobin Concent 31g/dL (31-37) 33g/dL (31-37) Red Cell Distribution Width 14.7% (11.5-14.5) 14.7% (11.5-14.5) Platelet Count 78x10^3/uL (140-400) 84x10^3/uL (140-400) Neutrophils (%) (Auto) 93% (31-73) 85% (31-73) Lymphocytes (%) (Auto) 4% (24-48) 9% (24-48) Monocytes (%) (Auto) 3% (0-9) 5% (0-9) Eosinophils (%) (Auto) 0% (0-3) 1% (0-3) Basophils (%) (Auto) 0% (0-3) 0% (0-3) Neutrophils # (Auto) 15.7x10^3uL (1.8-7.7) 14.5x10^3uL (1.8-7.7) Lymphocytes # (Auto) 0.6x10^3/uL (1.0-4.8) 1.6x10^3/uL (1.0-4.8) Monocytes # (Auto) 0.6x10^3/uL (0.0-1.1) 0.9x10^3/uL (0.0-1.1) Eosinophils # (Auto) 0.0x10^3/uL (0.0-0.7) 0.1x10^3/uL (0.0-0.7) Basophils # (Auto) 0.0x10^3/uL (0.0-0.2) 0.0x10^3/uL (0.0-0.2) Sodium Level 145mmol/L (136-145) 147mmol/L (136-145) Potassium Level 3.8mmol/L (3.5-5.1) 3.1mmol/L (3.5-5.1) Chloride Level 111mmol/L (98-107) 112mmol/L (98-107) Carbon Dioxide Level 23mmol/L (21-32) 25mmol/L (21-32) Anion Gap 11 (6-14) 10 (6-14) Blood Urea Nitrogen 34mg/dL (7-20) 22mg/dL (7-20) Creatinine 1.3mg/dL (0.6-1.0) 1.2mg/dL (0.6-1.0) Estimated GFR (Cockcroft-Gault) 48.7 53.4 Glucose Level 145mg/dL (70-99) 129mg/dL (70-99) Lactic Acid Level 1.2mmol/L (0.4-2.0) Calcium Level 8.7mg/dL (8.5-10.1) 8.1mg/dL (8.5-10.1) Creatine Kinase 700U/L (26-192) 554U/L (26-192) Creatine Kinase MB (Mass) 3.5ng/mL (0.0-3.6) 1.0ng/mL (0.0-3.6) Creatine Kinase MB Relative Index 0.5% (0-4) 0.2% (0-4) Laboratory Tests Test 10/15/16 09:24 White Blood Count 17.1x10^3/uL (4.0-11.0) Red Blood Count 3.35x10^6/uL (3.50-5.40) Hemoglobin 8.8g/dL (12.0-15.5) Hematocrit 27.0% (36.0-47.0) Mean Corpuscular Volume 81fL (79-100) Mean Corpuscular Hemoglobin 26pg (25-35) Mean Corpuscular Hemoglobin Concent 33g/dL (31-37) Red Cell Distribution Width 14.7% (11.5-14.5) Platelet Count 84x10^3/uL (140-400) Neutrophils (%) (Auto) 85% (31-73) Lymphocytes (%) (Auto) 9% (24-48) Monocytes (%) (Auto) 5% (0-9) Eosinophils (%) (Auto) 1% (0-3) Basophils (%) (Auto) 0% (0-3) Neutrophils # (Auto) 14.5x10^3uL (1.8-7.7) Lymphocytes # (Auto) 1.6x10^3/uL (1.0-4.8) Monocytes # (Auto) 0.9x10^3/uL (0.0-1.1) Eosinophils # (Auto) 0.1x10^3/uL (0.0-0.7) Basophils # (Auto) 0.0x10^3/uL (0.0-0.2) Prothrombin Time 23.7SEC (11.7-14.0) Prothromb Time International Ratio 2.3 (0.8-1.1) Sodium Level 147mmol/L (136-145) Potassium Level 3.1mmol/L (3.5-5.1) Chloride Level 112mmol/L (98-107) Carbon Dioxide Level 25mmol/L (21-32) Anion Gap 10 (6-14) Blood Urea Nitrogen 22mg/dL (7-20) Creatinine 1.2mg/dL (0.6-1.0) Estimated GFR (Cockcroft-Gault) 53.4 Glucose Level 129mg/dL (70-99) Calcium Level 8.1mg/dL (8.5-10.1) Creatine Kinase 554U/L (26-192) Creatine Kinase MB (Mass) 1.0ng/mL (0.0-3.6) Creatine Kinase MB Relative Index 0.2% (0-4) Imaging Postop x-rays show excellent alignment of the total hip arthroplasty prosthesis on the right Assessment Assessment POD# [2], S/P [right total hip arthroplasty] Problems: Plan Plan of Care I'm somewhat disappointed at her apparent lack of enthusiasm to get up and around after having relief of her hip pain. I emphasized that to minimize her medical risks all around she really needs to get up and get going that is certainly the purpose of our doing the hip replacement. Although she reports being independently ambulatory and doing well prior to this fall I question how much she had gotten up and around prior given her current level of activity Nevertheless continue physical therapy weightbearing as tolerated no hip precautions Continue to treat urinary tract infection and other medical supportive care Coumadin anticoagulation expected 6 weeks ZAKI MEZA MD Oct 15, 2016 17:01
[2016-10-15 19:20] VITALS: BP 144/66
[2016-10-15 23:34] VITALS: BP 156/72
[2016-10-16 03:10] VITALS: BP 148/76
[2016-10-16 06:27] LABS: BASO % 0 % (0-3); EOS % 1 % (0-3); HEMATOCRIT 26.5 % (36.0-47.0); HEMOGLOBIN 8.5 g/dL (12.0-15.5); LYMPH % 11 % (24-48); MEAN CORPUSCULAR HEMOGLOBIN 26 pg (25-35); MEAN CORPUSCULAR HGB CONC 32 g/dL (31-37); MEAN CORPUSCULAR VOLUME 82 fL (79-100); MONO % 5 % (0-9); NEUT % 83 % (31-73); PLATELET COUNT 111 x10^3/uL (140-400); RED BLOOD COUNT 3.22 x10^6/uL (3.50-5.40); RED CELL DISTRIBUTION WIDTH 14.4 % (11.5-14.5); WHITE BLOOD COUNT 18.9 x10^3/uL (4.0-11.0)
[2016-10-16 06:31] LABS: CALCIUM 8.4 mg/dL (8.5-10.1); CREATININE 1.2 mg/dL (0.6-1.0); GFR 53.4
[2016-10-16 06:34] LABS: POTASSIUM 2.9 mmol/L (3.5-5.1)
[2016-10-16 06:39] LABS: INR 2.2 (0.8-1.1); PROTHROMBIN TIME PATIENT 22.8 SEC (11.7-14.0)
[2016-10-16 07:00] VITALS: BP 157/80
[2016-10-16] MEDS ORDERED: POTASSIUM CHLORIDE 20 MEQ TABLET.ER. PO ONE ×2 (07:00→10:00)
[2016-10-16] MEDS: SENNOSIDES/DOCUSATE 8.6/50MG TABLET. PO SCH (08:42)
[2016-10-16] MEDS: MULTIVITAMIN with MINERAL TABLET. PO SCH (08:42)
[2016-10-16] MEDS: CELECOXIB 200 MG CAPSULE PO SCH (08:42)
[2016-10-16] MEDS: FERROUS SULFATE 325 MG TABLET PO SCH (08:42)
[2016-10-16 11:00] VITALS: BP 148/69
[2016-10-16] MEDS ORDERED: HYDR-2762 PO (12:26)
--- NOTE | 2016-10-16 12:50 | PDOC ---
ORTHO PROGRESS NOTES Subjective Patient reports that she is tired today and this is the reason she doesn't want to move or get up much. PT and nursing report that she is not very motivated to be up and around. She has only walked a few feet and needs assistance. Pain controlled. Post-op Day: 3 (Right [place]) Vitals Vital Signs Date Time Temp Pulse Resp B/P Pulse Ox O2 Delivery O2 Flow Rate FiO2 10/16/16 11:00 98.5 101 18 148/69 97 Room Air 98.5 10/15/16 15:00 2.0 Labs Laboratory Tests Test 10/15/16 09:24 10/16/16 05:30 White Blood Count 17.1x10^3/uL (4.0-11.0) 18.9x10^3/uL (4.0-11.0) Red Blood Count 3.35x10^6/uL (3.50-5.40) 3.22x10^6/uL (3.50-5.40) Hemoglobin 8.8g/dL (12.0-15.5) 8.5g/dL (12.0-15.5) Hematocrit 27.0% (36.0-47.0) 26.5% (36.0-47.0) Mean Corpuscular Volume 81fL (79-100) 82fL (79-100) Mean Corpuscular Hemoglobin 26pg (25-35) 26pg (25-35) Mean Corpuscular Hemoglobin Concent 33g/dL (31-37) 32g/dL (31-37) Red Cell Distribution Width 14.7% (11.5-14.5) 14.4% (11.5-14.5) Platelet Count 84x10^3/uL (140-400) 111x10^3/uL (140-400) Neutrophils (%) (Auto) 85% (31-73) 83% (31-73) Lymphocytes (%) (Auto) 9% (24-48) 11% (24-48) Monocytes (%) (Auto) 5% (0-9) 5% (0-9) Eosinophils (%) (Auto) 1% (0-3) 1% (0-3) Basophils (%) (Auto) 0% (0-3) 0% (0-3) Neutrophils # (Auto) 14.5x10^3uL (1.8-7.7) 15.7x10^3uL (1.8-7.7) Lymphocytes # (Auto) 1.6x10^3/uL (1.0-4.8) 2.0x10^3/uL (1.0-4.8) Monocytes # (Auto) 0.9x10^3/uL (0.0-1.1) 1.0x10^3/uL (0.0-1.1) Eosinophils # (Auto) 0.1x10^3/uL (0.0-0.7) 0.1x10^3/uL (0.0-0.7) Basophils # (Auto) 0.0x10^3/uL (0.0-0.2) 0.0x10^3/uL (0.0-0.2) Prothrombin Time 23.7SEC (11.7-14.0) 22.8SEC (11.7-14.0) Prothromb Time International Ratio 2.3 (0.8-1.1) 2.2 (0.8-1.1) Sodium Level 147mmol/L (136-145) 146mmol/L (136-145) Potassium Level 3.1mmol/L (3.5-5.1) 2.9mmol/L (3.5-5.1) Chloride Level 112mmol/L (98-107) 109mmol/L (98-107) Carbon Dioxide Level 25mmol/L (21-32) 22mmol/L (21-32) Anion Gap 10 (6-14) 15 (6-14) Blood Urea Nitrogen 22mg/dL (7-20) 18mg/dL (7-20) Creatinine 1.2mg/dL (0.6-1.0) 1.2mg/dL (0.6-1.0) Estimated GFR (Cockcroft-Gault) 53.4 53.4 Glucose Level 129mg/dL (70-99) 117mg/dL (70-99) Calcium Level 8.1mg/dL (8.5-10.1) 8.4mg/dL (8.5-10.1) Creatine Kinase 554U/L (26-192) Creatine Kinase MB (Mass) 1.0ng/mL (0.0-3.6) Creatine Kinase MB Relative Index 0.2% (0-4) Laboratory Tests Test 10/16/16 05:30 White Blood Count 18.9x10^3/uL (4.0-11.0) Red Blood Count 3.22x10^6/uL (3.50-5.40) Hemoglobin 8.5g/dL (12.0-15.5) Hematocrit 26.5% (36.0-47.0) Mean Corpuscular Volume 82fL (79-100) Mean Corpuscular Hemoglobin 26pg (25-35) Mean Corpuscular Hemoglobin Concent 32g/dL (31-37) Red Cell Distribution Width 14.4% (11.5-14.5) Platelet Count 111x10^3/uL (140-400) Neutrophils (%) (Auto) 83% (31-73) Lymphocytes (%) (Auto) 11% (24-48) Monocytes (%) (Auto) 5% (0-9) Eosinophils (%) (Auto) 1% (0-3) Basophils (%) (Auto) 0% (0-3) Neutrophils # (Auto) 15.7x10^3uL (1.8-7.7) Lymphocytes # (Auto) 2.0x10^3/uL (1.0-4.8) Monocytes # (Auto) 1.0x10^3/uL (0.0-1.1) Eosinophils # (Auto) 0.1x10^3/uL (0.0-0.7) Basophils # (Auto) 0.0x10^3/uL (0.0-0.2) Prothrombin Time 22.8SEC (11.7-14.0) Prothromb Time International Ratio 2.2 (0.8-1.1) Sodium Level 146mmol/L (136-145) Potassium Level 2.9mmol/L (3.5-5.1) Chloride Level 109mmol/L (98-107) Carbon Dioxide Level 22mmol/L (21-32) Anion Gap 15 (6-14) Blood Urea Nitrogen 18mg/dL (7-20) Creatinine 1.2mg/dL (0.6-1.0) Estimated GFR (Cockcroft-Gault) 53.4 Glucose Level 117mg/dL (70-99) Calcium Level 8.4mg/dL (8.5-10.1) Notes Patient is awake and alert. Incision covered with dressing, dressing is intact. No drainage. No signs or symptoms of infection. Neurovascular intact distally. No labored breathing Problems: (1) Closed right hip fracture Assessment and Plan Weightbearing as tolerated, strongly encouraged activity and reviewed possible negative outcomes from immobility Anticipate discharge to skilled today Follow-up with orthopedics in 2 weeks, Dr. Beverly Problem Qualifiers (1) Closed right hip fracture: Encounter type: subsequent encounter Fracture healing: with routine healing Qualified Code: S72.001D - Fracture of unspecified part of neck of right femur , subsequent encounter for closed fracture with routine healing LEON MALIN APRN Oct 16, 2016 12:50
[2016-10-16] MEDS ORDERED: WARFARIN 2 MG TABLET. PO ONE (16:00)
--- NOTE | 2016-10-16 16:06 | PDOC3 ---
Discharge Summary [facility] Date of Admission: Oct 12, 2016 Discharge Date: Oct 16, 2016 Admitting Diagnosis 1. Status post fall at home. 2. 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 + UA , asymptomatic 4. ALDO ON CKD3 5. Severe dehydration. 6. Elevated CPK. 7. sirs with uti 8. hypernatremia 9. hypokalemia 10. high LA, 2/2 dehydration likely Problems: Final Diagnosis Problems Medical Problems: (1) Closed right hip fracture Status: Acute (2) Right hip pain Status: Acute (3) Sepsis due to urinary tract infection Status: Acute CONSULTS ortho Procedures right hip replacement Brief Hospital Course Ms. Vega is a 71 oldF, fell at home with severe pain, sent here. no fx, but severe hip DJD, underwent rt hip replacement, dehydration, low po intake, cr better with ivf. dc to rehab dc time 35min General: Alert, Oriented X3, Cooperative Heart: Regular rate, Normal S1, Normal S2 Lungs: Clear Abdomen: Normal bowel sounds, Soft Extremities: No clubbing, No cyanosis Skin: No rashes Problems: Disposition snf CONDITION AT DISCHARGE: Improved Diet regular Scheduled PRN Hydrocodone Bit/Acetaminophen (Hydrocodone-Apap 7.5-325 ) 1 TAB PO PRN Q3HRS PRN PRN PAIN Follow Up ortho in 2 weeks SELAM WALLACE MD Oct 16, 2016 16:06
--- NOTE | 2016-10-16 16:55 | PATHOLOGY ---
PATHOLOGY REPORT * * * * * * * * FINAL DIAGNOSIS: Femoral head and separate segments of bone, right hip: - Focal fragmentation of bony trabeculae and recent hemorrhage consistent with fracture. - Advanced degenerative arthritis. COMMENT: There is no evidence of malignancy. (JPM:; d/t: 10/16/16) REPORT ELECTRONICALLY SIGNED BY: Felix Sandoval M.D. DATE/TIME: 10/16/2016 16:54 * * * * * * * * GROSS PATHOLOGY: Received in formalin labeled "Henny Saez, right hip bone and tissue," is a severely fractured femoral head measuring 5.4 x 4.7 x 3.5 cm in greatest dimensions and multiple additional segments of light azpata to red-brown bone fragments admixed with bone reamings measuring 11.5 x 2.2 x 3.5 cm in aggregate dimensions. The articular surface is light zapata and irregular in contour displaying evidence of eburnation. Sectioning reveals a light zapata marrow space, with the distal most aspect hemorrhagic in appearance, consistent with a fracture site. Clinical Laboratory Assistant tissue from the fracture site is submitted in cassette A1, following decalcification. (CAA; 10/15/2016) INITIAL CPT CODE(S): A; 14096, 77669 Professional services performed by [facility] [place] [address] Technical services performed by [facility] at [address] [place] [address], [place] [address]. SPECIMEN(S) RECEIVED: A.Right hip bone and tissue CLINICAL HISTORY: Closed right hip fracture PATIENT: HENNY SAEZ /AGE: 12 1945 (Age: 71) PATIENT #: [id number] ALT CASE #: SPECIMEN COLLECTION DATE: 10/13/2016 SPECIMEN RECEIVED DATE: 10/14/2016 [facility] - [address] [place] [address] - PHONE: [phone] * * * END OF REPORT * * *
== END 2016-10-16 16:00 | DRG 853 ==
LOC: ER 15:08 → ED HOLD 17:18 → 4 NORTH 19:51
PROVIDERS: ADMIT Internal Medicine; ATTEND Internal Medicine
PROC: 0SR90JZ Replacement of Right Hip Joint with Synthetic Substitute, Open Approach (ICD-10-PCS; principal; 2016-10-13 15:00)
DX: A41.9 Sepsis, unspecified organism (principal); N17.0 Acute kidney failure with tubular necrosis; E87.0 Hyperosmolality and hypernatremia; N39.0 Urinary tract infection, site not specified; M16.11 Unilateral primary osteoarthritis, right hip; E66.9 Obesity, unspecified; E86.0 Dehydration; E87.6 Hypokalemia; M21.70 Unequal limb length (acquired), unspecified site; N18.3 Chronic kidney disease, stage 3 (moderate); W07.XXXA Fall from chair, initial encounter; Y93.89 Activity, other specified; Y92.89 Other specified places as the place of occurrence of the external cause; Y99.8 Other external cause status; Z82.49 Family history of ischemic heart disease and other diseases of the circulatory system; Z91.81 History of falling; Z79.899 Other long term (current) drug therapy
CPT/HCPCS: 36415; 70450; 70486; 71010; 72125; 72170; 73502; 73562; 76000; 80048; 80053; 81001; 82550; 82553; 83605; 85007; 85027; 85610; 87086; 87186; 87641; 88305; 88311; 93005; 96361; 96365; C1887; J0171; J0690; J0696; J1885; J2270; J2405; J2704; J2795; J3010; J3480; J7030; J7120; S0028; 97110; 97530; 97535; 99285-25

== ENCOUNTER 2016-11-14 16:55 | Inpatient (IN) | payer MEDICARE ==
[~2016-11-14] VITALS: Ht 160 cm; Wt 86.2 kg
[~2016-11-14 16:55] MED LIST: HYDR-2762 PO
[2016-11-14 18:10] VITALS: BP 98/64
[2016-11-14] MEDS ORDERED: CELE200C PO (18:49)
[2016-11-14] MEDS ORDERED: BISA10SU55 RC (18:49)
[2016-11-14] MEDS ORDERED: POLY15DR18 OP (18:49)
[2016-11-14] MEDS ORDERED: HYDR-2762 PO (18:49)
[2016-11-14] MEDS ORDERED: MINE120C TP (18:49)
[2016-11-14] MEDS ORDERED: WARF5TAB7 PO (18:49)
[2016-11-14] MEDS ORDERED: ASCO500T3 PO (18:49)
[2016-11-14] MEDS ORDERED: mylanta PO (18:49)
[2016-11-14] MEDS ORDERED: FERR325T3 PO (18:49)
[2016-11-14] MEDS ORDERED: MAGN2400 PO (18:49)
[2016-11-14] MEDS ORDERED: ACET325T9 PO (18:49)
[2016-11-14] MEDS ORDERED: MULT1TAB97 PO (18:49)
[2016-11-14] MEDS ORDERED: COLL30OI TP (18:49)
[2016-11-14] MEDS ORDERED: [UNRECOGNIZED DRUG - CODE] PO (18:49)
[2016-11-14] MEDS ORDERED: NA P133E2 RC (18:49)
[2016-11-14] MEDS ORDERED: CALC300T5 PO (18:49)
[2016-11-14] MEDS ORDERED: SENN8.6T99 PO (18:49)
[2016-11-14] MEDS ORDERED: ZINC220T PO (18:49)
[2016-11-14] MEDS ORDERED: ALBU1.25 NEB (18:49)
[2016-11-14] MEDS ORDERED: SENN1TAB5 PO (18:49)
[2016-11-14 19:15] VITALS: BP 99/41
[2016-11-14] MEDS ORDERED: MINERAL OIL/PETROLATUM TOPICAL CREAM 113GM JAR. TP PRN (19:15)
[2016-11-14] MEDS ORDERED: ACETAMINOPHEN 325 MG TABLET. PO PRN (19:15)
[2016-11-14] MEDS ORDERED: POLYVINYL ALCOHOL 1.4% OPHTH SOLUTION 15ML BOTTLE. OU PRN (19:15)
[2016-11-14] MEDS ORDERED: BISACODYL 10 MG SUPP.RECT RC PRN (19:15)
[2016-11-14] MEDS ORDERED: SODIUM PHOSPHATES 19/7GM 133 ML ENEMA. RC PRN (19:15)
[2016-11-14] MEDS ORDERED: HYDROCODONE/APAP 7.5/325MG TABLET. PO PRN ×2 (19:15)
[2016-11-14] MEDS ORDERED: ALBUTEROL SULFATE 2.5 MG/3 ML NEBU. NEB PRN (19:30)
[2016-11-14] MEDS ORDERED: BISMUTH SUBSALICYLATE 262 MG/15 ML ORAL.SUSP 236ML BOTTLE. PO PRN (19:30)
[2016-11-14] MEDS ORDERED: MAG HYDROX/ALUMINUM HYD/SIMETH 30 ML ORAL.SUSP PO PRN (19:30)
[2016-11-14] MEDS ORDERED: MAGNESIUM HYDROXIDE 2,400 MG/30 ML ORAL.SUSP. PO PRN (19:30)
[2016-11-14] MEDS: CELECOXIB 200 MG CAPSULE PO SCH (20:56)
[2016-11-14] MEDS: ASCORBIC ACID 500 MG TABLET PO SCH (20:56)
[2016-11-14 23:10] VITALS: BP 130/55
[2016-11-15] VITALS (12 sets, daily range): BP systolic 114–152; BP diastolic 48–73
[2016-11-15] MEDS: FERROUS SULFATE 325 MG TABLET PO SCH ×2 (08:00→17:45)
[2016-11-15] MEDS: ZINC SULFATE 220 MG CAPSULE. PO SCH (08:39)
[2016-11-15] MEDS: CALCIUM CARBONATE 500 MG TABLET PO SCH (08:39)
[2016-11-15] MEDS: CELECOXIB 200 MG CAPSULE PO SCH ×2 (08:39→21:00)
[2016-11-15] MEDS: MULTIVITAMIN with MINERAL TABLET. PO SCH (08:40)
[2016-11-15] MEDS: SENNOSIDES 8.6 MG TABLET PO SCH (08:40)
[2016-11-15] MEDS: ASCORBIC ACID 500 MG TABLET PO SCH ×2 (08:40→21:00)
[2016-11-15] MEDS ORDERED: COLLAGENASE 250 UNIT/GM TOPICAL OINTMENT 30GM TUBE. TP SCH (09:00)
[2016-11-15] MEDS ORDERED: SENNOSIDES/DOCUSATE 8.6/50MG TABLET. PO SCH (09:00)
[2016-11-15] MEDS ORDERED: FENTANYL PF 100 MCG/2 ML VIAL. ONE (09:22)
[2016-11-15] MEDS ORDERED: DESFLURANE 31 TO 60 MINUTES IH ONE (09:22)
[2016-11-15] MEDS ORDERED: DEXAMETHASONE SOD PHOS 20 MG/5 ML VIAL. ONE (09:22)
[2016-11-15] MEDS ORDERED: PROPOFOL 20 ML IV ONE (09:22)
[2016-11-15] MEDS ORDERED: LIDOCAINE 2% 100 MG/5 ML DISP.SYRIN. ONE (09:22)
[2016-11-15] MEDS ORDERED: ONDANSETRON PF 4 MG/2 ML VIAL. ONE (09:22)
[2016-11-15] MEDS ORDERED: CEFAZOLIN 2GM PREMIX 50 ML IV ONE ×2 (09:44→10:00)
[2016-11-15] MEDS ORDERED: IV RINGERS,LACTATED 1000ML 1,000 ML IV SCH (09:46)
[2016-11-15] MEDS ORDERED: ONDANSETRON PF 4 MG/2 ML VIAL. IV PRN ×2 (10:00→11:30)
[2016-11-15] MEDS ORDERED: MORPHINE SULFATE 2 MG/ML DISP.SYRIN. IV PRN ×2 (10:00→11:30)
[2016-11-15] MEDS ORDERED: PROCHLORPERAZINE 10 MG/2 ML VIAL. IV PRN (10:00)
[2016-11-15] MEDS ORDERED: HYDROMORPHONE 2 MG/ML VIAL. IV PRN (10:00)
[2016-11-15] MEDS ORDERED: FENTANYL PF 100 MCG/2 ML VIAL. IV PRN ×2 (10:00→11:30)
[2016-11-15] MEDS ORDERED: LIDOCAINE 1% 1 ML SYRINGE. ID PRN (10:00)
[2016-11-15] MEDS: FENTANYL PF 100 MCG/2 ML VIAL. IV PRN ×2 (10:57→11:23)
[2016-11-15] MEDS ORDERED: MORPHINE SULFATE 4 MG/ML DISP.SYRIN. IV PRN (11:30)
[2016-11-15] MEDS ORDERED: DEXTROSE 50% 25 GM / 50ML DISP.SYRIN. IV PRN (11:30)
[2016-11-15] MEDS ORDERED: OXYCODONE IR 5 MG TABLET. PO PRN (11:30)
[2016-11-15] MEDS ORDERED: POLYETHYLENE GLYCOL 3350 17 GM PACKET. PO PRN (11:30)
[2016-11-15] MEDS ORDERED: HYDROCODONE/APAP 7.5/325MG TABLET. PO PRN (11:30)
--- NOTE | 2016-11-15 12:12 | HP ---
ADMIT DATE: 11/15/2016 CHIEF COMPLAINT: Right hip wound tissue necrosis. HISTORY OF PRESENT ILLNESS: The patient underwent over 5 weeks ago a right hip arthroplasty from a fracture due to severe pain, inability to ambulate. She subsequently has been in rehabilitation, intermediate care at the [facility] and had a wound VAC placed subsequent to my last clinic visit with the patient, but has developed some ____ on her skin lateral to the wound and I received word from Dr. Beaver on Thursday about concern for her right hip wound and she was therefore admitted for further evaluation and treatment of this condition. She has really no pain on ambulation, good function with the hip and is otherwise progressing well with physical therapy. PAST MEDICAL HISTORY: Significant for arthritis and cataracts. PAST SURGICAL HISTORY: Significant for the most recent hip arthroplasty on the left hip pinning many years ago and cataract surgery. FAMILY HISTORY: Hypertension. REVIEW OF SYSTEMS: Denies any fever, chills, shortness of breath, focal weakness, numbness, tingling, chest pain and continues to follow from recent cataract surgery. SOCIAL HISTORY: She had previously lived independently prior to this issue. She is currently at the rehabilitation facility before admission. Denies smoking, alcohol or drug use. PHYSICAL EXAMINATION: GENERAL: A pleasant, cooperative 71-year-old female, alert and oriented, in no acute distress. VITAL SIGNS: Temperature 97.8, respirations 18, pulse 90, blood pressure 125/68. She is 93% previously on room air, is 100% recovery room on 8 liters mask. HEENT: Atraumatic, normocephalic. HEART: Regular rate and rhythm. LUNGS: Clear to auscultation bilaterally. ABDOMEN: Benign. EXTREMITIES: Examination of the right hip wound reveals some superficial necrosis in the area of her mid incision. The proximal and distal aspects of her incision are healed well, but to the lateral aspect of her incision, there is a significant amount of ____ over the area of the skin that appears to be superficial and involving the subcutaneous layer as the area does not probe deeply either an area of the ____ or wound. There is an odor; however, from the wound area and she has some overlying abdominal pannus in the area as well. She has excellent range of motion of her hip, equal leg lengths. Negative straight leg raise. No trochanteric bursitis or pain on range of motion of the hip, well-healed incision from previous hip pinning on the left, has normal motion, alignment, stability of bilateral knees and ankles as well with intact motor function, distal pulses, sensation in both lower extremities throughout. IMPRESSION: Apparent skin necrosis in the area of previous right hip arthroplasty. TREATMENT PLAN: Since this area does not probe deeply, I do not think there is any involvement of her joint or implant, especially since she really has no symptoms of it. However, she will need debridement of the area as it does not appear to be progressing adequately with wound VAC and other wound care and also she is developing some additional skin necrosis laterally along with this current wound VAC treatment requiring debridement. I told the patient this alternatives postoperatively would be perhaps getting this area to clean up and may be even doing a later skin graft or through traditional wound care, [place] allowing it to granulate and underneath depending on her progress. All of her questions were answered. She wants to proceed with surgical evaluation and treatment, which will occur this morning. ZAKI MEZA MD DR: TOSHA/andriy JOB#: [id number] / [id number]
[2016-11-15 12:27] LABS: INR 2.1 (0.8-1.1); PROTHROMBIN TIME PATIENT 22.3 SEC (11.7-14.0)
--- NOTE | 2016-11-15 14:42 | PDOC ---
BRIEF OPERATIVE NOTE Date: Nov 15, 2016 Pre-Op Diagnosis right hip wound Post-Op Diagnosis superficial tissue necrosis right hip Procedure Performed debridement skin, subq tissue right hip , application wound vac Surgeon Siria Anesthesia Type: General Blood Loss 25cc Findings above Complications none ZAKI MEZA MD Nov 15, 2016 14:42
[2016-11-15] MEDS ORDERED: WARFARIN 5 MG TABLET. PO ONE (16:00)
[2016-11-16] MEDS: HYDROCODONE/APAP 7.5/325MG TABLET. PO PRN ×3 (03:20→22:02)
[2016-11-16 03:33] VITALS: BP 125/55
[2016-11-16] MEDS ORDERED: MAGNESIUM HYDROXIDE 2,400 MG/30 ML ORAL.SUSP. PO PRN (06:00)
[2016-11-16 06:04] LABS: PROTHROMBIN TIME PATIENT 21.5 SEC (11.7-14.0)
[2016-11-16 07:00] VITALS: BP 113/63
[2016-11-16] MEDS: SENNOSIDES/DOCUSATE 8.6/50MG TABLET. PO SCH (09:00)
[2016-11-16] MEDS: ZINC SULFATE 220 MG CAPSULE. PO SCH (09:00)
[2016-11-16] MEDS: ASCORBIC ACID 500 MG TABLET PO SCH ×2 (09:00→22:01)
[2016-11-16] MEDS: MULTIVITAMIN with MINERAL TABLET. PO SCH (09:00)
[2016-11-16] MEDS: CALCIUM CARBONATE 500 MG TABLET PO SCH (09:00)
[2016-11-16] MEDS: SENNOSIDES 8.6 MG TABLET PO SCH (09:06)
[2016-11-16] MEDS: FERROUS SULFATE 325 MG TABLET PO SCH ×2 (09:06→17:11)
[2016-11-16] MEDS: CELECOXIB 200 MG CAPSULE PO SCH ×2 (09:07→22:01)
--- NOTE | 2016-11-16 10:07 | PDOC ---
PROGRESS NOTES Subjective Subjective Problems overnight:nocomplaints of hip pain except pulling on motion and getting around well, talkative but ? confused as she asked me the same questions 3-4 times after responses Objective Vital Signs Vital Signs Date Time Temp Pulse Resp B/P Pulse Ox O2 Delivery O2 Flow Rate FiO2 11/16/16 09:05 Room Air 11/16/16 07:00 98.0 87 20 113/63 96 98.0 11/15/16 20:00 8.0 Physical Exam wound vac intact, no surrounding redness, hip motion excellent, neuro intact Labs Laboratory Tests Test 11/15/16 12:10 11/16/16 05:00 Prothrombin Time 22.3SEC (11.7-14.0) 21.5SEC (11.7-14.0) Prothromb Time International Ratio 2.1 (0.8-1.1) 2.0 (0.8-1.1) Laboratory Tests Test 11/15/16 12:10 11/16/16 05:00 Prothrombin Time 22.3SEC (11.7-14.0) 21.5SEC (11.7-14.0) Prothromb Time International Ratio 2.1 (0.8-1.1) 2.0 (0.8-1.1) Assessment Assessment POD# [1], S/P [debridement hip wound] Problems: Plan Plan of Care complicated home situation, mainly alone history of many foster children but they dont have input on care seemed to be doing well with pt but reluctant, will assess further today expressed concern about getting home to take care of things, bills etc as noone can go to the bank for her if safe with ambulation, transfers, ADLs home with home health for wound care may be an option ZAKI MEZA MD Nov 16, 2016 10:07
[2016-11-16 11:00] VITALS: BP 104/57
[2016-11-16 13:49] LABS: HEMATOCRIT 22.4 % (36.0-47.0)
[2016-11-16 15:00] VITALS: BP 108/60
[2016-11-16] MEDS ORDERED: BISACODYL 10 MG SUPP.RECT PR PRN (16:00)
[2016-11-16 19:17] VITALS: BP 121/60
[2016-11-16 23:10] VITALS: BP 120/51
--- NOTE | 2016-11-17 02:28 | OP ---
DATE OF SURGERY: 11/15/2016 PREOPERATIVE DIAGNOSIS: Right hip wound tissue necrosis. POSTOPERATIVE DIAGNOSIS: Right hip wound tissue necrosis confined to skin and soft tissue. PROCEDURE: Irrigation and debridement of the right hip wound. SURGEON: Jason Beverly M.D. ANESTHESIA: General. ESTIMATED BLOOD LOSS: ____ mL COMPLICATIONS: None. OPERATIVE INDICATIONS: The patient prior to admission apparently was admitted to the hospital and underwent a total hip arthroplasty several weeks ago secondary to a reported fall at home where she fell down getting out of a chair. She was reported as independently ambulatory at that time, but does have a healed pressure ulcer, so there is some question in terms of her premorbid mobility status and although she indicates significant relief of her hip and no complaints with the hip, apparently is very reluctant to participate significantly in physical therapy. She gives some concern, which I have dissuaded her of that the work that they have been doing in physical therapy, stretching and walking and having her on the bike, etc., may have caused the problem, which I under most circumstances do not think is really the case. In any case, she had been undergoing wound VAC treatment for some superficial tissue necrosis around the area of her hip incision. This has apparently worsened and based on some conversations with Dr. Farshad Looney's nurse practitioner, the patient was admitted to the hospital for planned debridement of her hip. I had gone over with her that based on examination if there does not appear to be deep involvement, not sure of the cause of the tissue necrosis, nevertheless, certainly with the implant involved, we do not want to risk problem with her ongoing care and certainly want to be aggressive with her treatment to allow and facilitate her healing, etc. All her questions were answered regarding the treatment. I told her I really could not give her assurance that she would not need additional procedures and in fact stated that 2 possibilities in terms of her treatment would include the possibility of ongoing wound care or perhaps even a skin graft, which would speed up her treatment if a good wound VAC could be established, but of course that would involve another procedure and I do not see that being an option for acute treatment at this time. Again, all her questions were answered. She agrees to proceed with operative evaluation and treatment. OPERATIVE TECHNIQUE: The patient was identified, procedure verified. After good amounts of general anesthesia were administered, she was placed in the supine position on the operating table and the right hip was prepped and draped in standard sterile fashion. After timeout was performed, the patient and procedure identified and verified. The area of eschar laterally to the wound was debrided and basically consisted of in some areas full thickness and in other areas near full thickness skin necrosis. She had good healing of the proximal and distal aspects of the incision and the midpoint of the incision, some area of subcutaneous tissue exposed. This area did not probe deeply. There was in fact healthy tissue beneath in all areas prior to and following debridement. Given that there was no deep tunneling or actual deep communication whatsoever, I elected not to perform cultures as the area was all exposed to skin and would likely not be meaningful. The debridement of skin and subcutaneous tissue was carried out sharply with Metzenbaum scissors and scalpel back to good healthy bleeding tissue. There were a couple of peninsula areas of skin into the area of the affected wound that I thought were likewise very questionable in their viability and debrided those to more regular edges for the wound bed. Again, good viable tissue was seen beneath all and following additional irrigation with normal saline and pulse lavage, a wound VAC was placed over the area and excellent suction was obtained. The patient was returned to the recovery room in stable condition having tolerated the procedure well. JASON BEVERLY MD DR: TOSHA/andriy JOB#: [id number] / [id number] marlena Yen Dr.
[2016-11-17] MEDS: HYDROCODONE/APAP 7.5/325MG TABLET. PO PRN ×3 (02:35→15:21)
[2016-11-17 03:19] VITALS: BP 126/69
[2016-11-17 04:27] LABS: PROTHROMBIN TIME PATIENT 21.6 SEC (11.7-14.0)
[2016-11-17 07:00] VITALS: BP 138/60
[2016-11-17] MEDS: SENNOSIDES/DOCUSATE 8.6/50MG TABLET. PO SCH (09:00)
--- NOTE | 2016-11-17 09:16 | PDOC ---
PROGRESS NOTES Subjective Subjective Problems overnight: No new problems getting up and around well with physical therapy especially yesterday where she did well with transfers and ambulation and activities of daily living Objective Vital Signs Vital Signs Date Time Temp Pulse Resp B/P Pulse Ox O2 Delivery O2 Flow Rate FiO2 11/17/16 07:40 Room Air 11/17/16 06:55 20 94 11/17/16 03:19 98.0 81 126/69 98.0 11/16/16 08:00 8.0 Physical Exam Wound VAC intact with good suction no surrounding redness excellent hip range of motion leg lengths equal intact distal neurovascular status good improving strength Labs Laboratory Tests Test 11/15/16 12:10 11/16/16 05:00 11/17/16 03:25 Prothrombin Time 22.3SEC (11.7-14.0) 21.5SEC (11.7-14.0) 21.6SEC (11.7-14.0) Prothromb Time International Ratio 2.1 (0.8-1.1) 2.0 (0.8-1.1) 2.0 (0.8-1.1) Hemoglobin 7.0g/dL (12.0-15.5) Hematocrit 22.4% (36.0-47.0) Mean Corpuscular Hemoglobin Concent 31g/dL (31-37) Laboratory Tests Test 11/17/16 03:25 Prothrombin Time 21.6SEC (11.7-14.0) Prothromb Time International Ratio 2.0 (0.8-1.1) Assessment Assessment POD# [], S/P [I&D right hip wound] Problems: Plan Plan of Care Hemoglobin of 7.0 is noted but she is completely asymptomatic has no heart history and getting around well. Furthermore essentially no blood loss with the operative procedure and she has been at this level asymptomatic for a few weeks in her previous rehabilitation stay Plan placement as soon as practical with home health care and wound care follow- up for the wound VAC No hip precautions or other activity restrictions necessary ZAKI MEZA MD Nov 17, 2016 09:16
[2016-11-17] MEDS: FERROUS SULFATE 325 MG TABLET PO SCH ×2 (09:36→15:21)
[2016-11-17] MEDS: CELECOXIB 200 MG CAPSULE PO SCH (09:36)
[2016-11-17] MEDS: MULTIVITAMIN with MINERAL TABLET. PO SCH (09:36)
[2016-11-17] MEDS: ASCORBIC ACID 500 MG TABLET PO SCH (09:36)
[2016-11-17] MEDS: CALCIUM CARBONATE 500 MG TABLET PO SCH (09:36)
[2016-11-17] MEDS: ZINC SULFATE 220 MG CAPSULE. PO SCH (09:36)
[2016-11-17] MEDS: SENNOSIDES 8.6 MG TABLET PO SCH (09:36)
[2016-11-17 11:00] VITALS: BP 133/77
[2016-11-17 15:00] VITALS: BP 106/58
[2016-11-17] MEDS ORDERED: WARFARIN 5 MG TABLET. PO ONE (16:00)
--- NOTE | 2016-11-18 01:57 | DS ---
DATE OF DISCHARGE: 11/17/2016 PRINCIPAL DIAGNOSIS: Right hip area wound breakdown. SURGICAL PROCEDURE: Irrigation and debridement. Wound VAC placement to the right hip. Discharge today is to [facility]. Her activity level is weightbearing as tolerated, no hip precautions necessary. WOUND CARE INSTRUCTIONS: Include wound VAC changes Thursday, Thursday, Thursday. MEDICATIONS: Include [place] 7.5/325 mg one to two p.o. q. 4 hours p.r.n. pain. Resume preoperative medications. FOLLOWUP: With Dr. Beverly in about 2 weeks. BRIEF DESCRIPTION OF HOSPITAL COURSE: The patient was found to have significant skin breakdown and eschar lateral to her hip incision from a previous total hip arthroplasty. This was advancing despite wound VAC treatment at her rehabilitation facility and she was therefore brought in for operative evaluation and debridement. The area was found to have only superficial involvement and although she underwent intraoperative antibiotics with debridement, no ongoing antibiotic treatment was prescribed. Postoperatively, she was mobilized with physical therapy and gotten up and around reasonably well. I have suggested to her that given her good proficiency with activities of daily living and ambulation and transfers that home with home health would be a possibility, but she was unwilling to have people come into her home. Wound care clinic would pose some difficulties due to her confusion and driving risk and she states that there is really not anybody around to help her and therefore ultimately made the decision for rehab at the [facility] where she was discharged home in stable condition. ZAKI BEVERLY MD DR: TOSHA/andriy JOB#: [id number] / [id number] NOLAN Hunter MD
== END 2016-11-17 16:30 | DRG 903 ==
LOC: 4 NORTH 17:18
PROVIDERS: ADMIT Orthopaedic Surgery; ATTEND Orthopaedic Surgery
PROC: 0HBHXZZ Excision of Right Upper Leg Skin, External Approach (ICD-10-PCS; principal; 2016-11-15 09:30)
DX: T81.89XA Other complications of procedures, not elsewhere classified, initial encounter (principal); L89.209 Pressure ulcer of unspecified hip, unspecified stage; Z96.641 Presence of right artificial hip joint; Y83.8 Other surgical procedures as the cause of abnormal reaction of the patient, or of later complication, without mention of misadventure at the time of the procedure; Y92.89 Other specified places as the place of occurrence of the external cause; Z82.49 Family history of ischemic heart disease and other diseases of the circulatory system
CPT/HCPCS: 36415; 85014; 85018; 85610; J0690; J1100; J2405; J2704; J3010; J7030; J7120; 97110; 97116

== ENCOUNTER → 2016-12-04 | Outpatient (CLI) | payer OTHER ==
[2016-11-17 15:00] VITALS: BP 106/58
[~2016-12-04] MED LIST changes: +ACET325T9 PO; +ALBU1.25 NEB; +ASCO500T3 PO; +BISA10SU55 RC; +CALC300T5 PO; +CELE200C PO; +COLL30OI TP; +FERR325T3 PO; +MAGN2400 PO; +MINE120C TP; +MULT1TAB97 PO; +NA P133E2 RC; +POLY15DR18 OP; +SENN1TAB5 PO; +SENN8.6T99 PO; +WARF5TAB7 PO; +ZINC220T PO; +[UNRECOGNIZED DRUG - CODE] PO; +mylanta PO
== END | disposition home or self-care (01) ==
LOC: PMGWOUND 08:15
PROVIDERS: ATTEND Preventive Medicine Undersea and Hyperbaric Medicine
DX: T81.89XD Other complications of procedures, not elsewhere classified, subsequent encounter (principal); L89.214 Pressure ulcer of right hip, stage 4; M19.90 Unspecified osteoarthritis, unspecified site; Y83.8 Other surgical procedures as the cause of abnormal reaction of the patient, or of later complication, without mention of misadventure at the time of the procedure
CPT/HCPCS: 11042; 11045

== ENCOUNTER → 2016-12-15 | Outpatient (CLI) | payer MEDICARE, OTHER ==
[2016-11-17 15:00] VITALS: BP 106/58
== END | disposition home or self-care (01) ==
LOC: PMGWOUND 14:26
PROVIDERS: ATTEND Emergency Medicine Undersea and Hyperbaric Medicine
DX: T81.89XD Other complications of procedures, not elsewhere classified, subsequent encounter (principal); L89.214 Pressure ulcer of right hip, stage 4; M19.90 Unspecified osteoarthritis, unspecified site; I96 Gangrene, not elsewhere classified; Y83.8 Other surgical procedures as the cause of abnormal reaction of the patient, or of later complication, without mention of misadventure at the time of the procedure
CPT/HCPCS: 99214

== ENCOUNTER → 2016-12-22 | Outpatient (CLI) | payer MEDICARE | END | disposition home or self-care (01) | LOC: PMGWOUND 13:08 | PROVIDERS: ATTEND Emergency Medicine Undersea and Hyperbaric Medicine | DX: T81.89XD Other complications of procedures, not elsewhere classified, subsequent encounter (principal); L89.214 Pressure ulcer of right hip, stage 4; M19.90 Unspecified osteoarthritis, unspecified site; I96 Gangrene, not elsewhere classified; Y83.8 Other surgical procedures as the cause of abnormal reaction of the patient, or of later complication, without mention of misadventure at the time of the procedure | CPT/HCPCS: 99214 ==

== ENCOUNTER → 2016-12-29 | Outpatient (CLI) | payer MEDICARE | END | disposition home or self-care (01) | LOC: PMGWOUND 11:59 | PROVIDERS: ATTEND Emergency Medicine Undersea and Hyperbaric Medicine | DX: T81.89XD Other complications of procedures, not elsewhere classified, subsequent encounter (principal); L89.214 Pressure ulcer of right hip, stage 4; M19.90 Unspecified osteoarthritis, unspecified site; Y83.8 Other surgical procedures as the cause of abnormal reaction of the patient, or of later complication, without mention of misadventure at the time of the procedure | CPT/HCPCS: 99214 ==

== ENCOUNTER → 2017-01-05 | Outpatient (CLI) | payer MEDICARE | END | disposition home or self-care (01) | LOC: PMGWOUND 13:29 | PROVIDERS: ATTEND Emergency Medicine Undersea and Hyperbaric Medicine | DX: T81.89XD Other complications of procedures, not elsewhere classified, subsequent encounter (principal); L89.214 Pressure ulcer of right hip, stage 4; M19.90 Unspecified osteoarthritis, unspecified site; Y83.8 Other surgical procedures as the cause of abnormal reaction of the patient, or of later complication, without mention of misadventure at the time of the procedure | CPT/HCPCS: 99214 ==

== ENCOUNTER → 2017-01-19 | Outpatient (CLI) | payer MEDICARE | END | disposition home or self-care (01) | LOC: PMGWOUND 13:52 | PROVIDERS: ATTEND Emergency Medicine Undersea and Hyperbaric Medicine | DX: T81.89XD Other complications of procedures, not elsewhere classified, subsequent encounter (principal); L89.214 Pressure ulcer of right hip, stage 4; M19.90 Unspecified osteoarthritis, unspecified site; Y83.8 Other surgical procedures as the cause of abnormal reaction of the patient, or of later complication, without mention of misadventure at the time of the procedure | CPT/HCPCS: 99214 ==

== ENCOUNTER → 2017-02-02 | Outpatient (CLI) | payer MEDICARE | END | disposition home or self-care (01) | LOC: PMGWOUND 13:07 | PROVIDERS: ATTEND Emergency Medicine Undersea and Hyperbaric Medicine | DX: L89.214 Pressure ulcer of right hip, stage 4 (principal); M19.90 Unspecified osteoarthritis, unspecified site; I96 Gangrene, not elsewhere classified; H26.9 Unspecified cataract | CPT/HCPCS: 99214 ==

== ENCOUNTER → 2017-02-16 | Outpatient (CLI) | payer MEDICARE ==
[~2017-02-16] MED LIST changes: +SENN1TAB15 PO; -SENN1TAB5 PO
== END | disposition home or self-care (01) ==
LOC: PMGWOUND 12:55
PROVIDERS: ATTEND Emergency Medicine Undersea and Hyperbaric Medicine
DX: L89.214 Pressure ulcer of right hip, stage 4 (principal); M19.90 Unspecified osteoarthritis, unspecified site; I96 Gangrene, not elsewhere classified
CPT/HCPCS: 99213

== ENCOUNTER 2021-01-20 14:21 | Emergency (ER) | payer MEDICARE ==
[~2021-01-20] VITALS: Ht 152.4 cm; Wt 68.8 kg
[~2021-01-20 14:21] MED LIST changes: +AMOX1TAB11 PO; +ATROPINE 1 MG/10 ML DISP.SYRINGE. ONE; +CALCIUM CHLORIDE 1,000 MG/10 ML DISP.SYRIN ONE; +EPINEPHrine SYRINGE 1 MG/10 ML SYRINGE ONE; +FLUC100T7 PO; -HYDR-2762 PO; +HYDR-2765 PO; +LIDOCAINE 2% 100 MG/5 ML SYRINGE. ONE; -MAGN2400 PO; +MAGN24003 PO; +MAGNESIUM SULFATE PREMIX 1 GM/100 ML BAG. IV ONE; +SODIUM BICARB ADULT 8.4% 50 MEQ/50 ML DISP.SYRIN. ONE; +WARF-31 PO; -WARF5TAB7 PO; -ZINC220T PO; +ZINC220T3 PO
[2021-01-20] MEDS ORDERED: MIDAZOLAM 100mg/100ml NS BAG 100 ML IV ONE (15:00)
[2021-01-20] MEDS ORDERED: NOREPINEPHRINE VIAL 8 MG in IV DEXTROSE 5% 250 ML IV ONE (15:00)
[2021-01-20] MEDS ORDERED: MIDAZOLAM HCL 50 MG in IV NORMAL SALINE 50ML 50 ML IV ONE (15:00)
[2021-01-20] MEDS ORDERED: IV NORMAL SALINE 1000ML BAG 1,000 ML IV ONE ×5 (15:00→16:45)
[2021-01-20 15:04] LABS: BASO % 0 % (0-3); EOS % 0 % (0-3); HEMATOCRIT 35.7 % (36.0-47.0); HEMOGLOBIN 11.5 g/dL (12.0-15.5); LYMPH # 0.5 x10^3/uL (1.0-4.8); LYMPH % 7 % (24-48); MEAN CORPUSCULAR HEMOGLOBIN 26 pg (25-35); MEAN CORPUSCULAR HGB CONC 32 g/dL (31-37); MEAN CORPUSCULAR VOLUME 80 fL (79-100); MONO # 0.1 x10^3/uL (0.0-1.1); MONO % 2 % (0-9); NEUT # 6.3 x10^3/uL (1.8-7.7); NEUT % 91 % (31-73); PLATELET COUNT 120 x10^3/uL (140-400); RED BLOOD COUNT 4.47 x10^6/uL (3.50-5.40); RED CELL DISTRIBUTION WIDTH 16.7 % (11.5-14.5); WHITE BLOOD COUNT 6.9 x10^3/uL (4.0-11.0)
[2021-01-20 15:14] LABS: PROTHROMBIN TIME PATIENT 23.4 SEC (11.7-14.0)
[2021-01-20] MEDS ORDERED: cefTRIAXone IV Push 1 GM VIAL. IVP ONE (15:15)
[2021-01-20 15:22] LABS: BILIRUBIN,URINE MODERATE (NEG); CLARITY,URINE TURBID; COLOR,URINE YELLOW; NITRITE,URINE NEGATIVE (NEG); PH,URINE 5.5 (<5.0-8.0); PROTEIN,URINE NEGATIVE (NEG-TRACE); UROBILINOGEN,URINE 0.2 mg/dL (0.2 mg/dL)
[2021-01-20 15:31] LABS: ALBUMIN 2.2 g/dL (3.4-5.0); ALBUMIN/GLOBULIN RATIO 0.5 (1.0-1.7); CALCIUM 9.8 mg/dL (8.5-10.1); CREATININE 2.1 mg/dL (0.6-1.0); GFR 27.7; TOTAL BILIRUBIN 0.9 mg/dL (0.2-1.0); TOTAL PROTEIN 6.5 g/dL (6.4-8.2)
[2021-01-20 15:32] LABS: BACTERIA,URINE 0 /HPF (0-FEW); HYALINE CASTS, URINE MANY /HPF; RBC,URINE 0 /HPF (0-2)
[2021-01-20 15:35] LABS: BASE EXCESS COOX -3 mmol/L (-3-3); HCO3 COOX 21 mmol/L (21-28); METHEMOGLOBIN 1.2 % (0.0-1.9); OXYHEMOGLOBIN 95.8 %; PCO2 COOX 32 mmHg (35-46); PO2 COOX 126 mmHg (65-108); SAT O2 COOX 97 % (92-99)
[2021-01-20 15:44] LABS: POTASSIUM 2.6 mmol/L (3.5-5.1)
[2021-01-20 15:47] LABS: CREATININE ISTAT 1.5 mg/dL (0.5-1.4); HEMOGLOBIN ISTAT 5.1 g/dL (12-15); ION CA ISTAT 1.54 mmol/L (1.13-1.32); POTASSIUM ISTAT 3.2 mmol/L (3.5-5.0)
[2021-01-20] MEDS ORDERED: ETOMIDATE 20 MG/10 ML VIAL. IV ONE (16:00)
[2021-01-20] MEDS ORDERED: EPINEPHrine SYRINGE 1 MG/10 ML SYRINGE IV ONE ×9 (16:00→19:45)
[2021-01-20] MEDS ORDERED: CALCIUM CHLORIDE 1,000 MG/10 ML DISP.SYRIN IV ONE ×2 (16:00)
[2021-01-20] MEDS ORDERED: SODIUM BICARB ADULT 8.4% 50 MEQ/50 ML DISP.SYRIN. IV ONE ×3 (16:00→19:30)
[2021-01-20] MEDS ORDERED: SUCCINYLCHOLINE 200 MG/10 ML VIAL. IV ONE (16:00)
[2021-01-20] MEDS ORDERED: LIDOCAINE 2% 100 MG/5 ML SYRINGE. IV ONE (16:00)
[2021-01-20] MEDS ORDERED: AMIODARONE 150 MG/3 ML VIAL IVP ONE ×2 (16:00)
[2021-01-20] MEDS ORDERED: MAGNESIUM SULFATE 1GM 100 ML IV ONE (16:00)
[2021-01-20 16:34] VITALS: BP 47/30
[2021-01-20] MEDS ORDERED: PHENYLEPHRINE INJ 50 MG in IV NORMAL SALINE 250ML 250 ML IV PRN (17:15)
[2021-01-20 17:38] LABS: % BANDS 3 % (0-9); % LYMPHS 12 % (24-48); % MONOS 3 % (0-10); % SEGS 82 % (35-66); HYPOCHROMIA SLIGHT; NUCLEATED RBC 1; PLT ESTIMATE DECREASED (ADEQUATE)
[2021-01-20 17:39] LABS: ANISOCYTOSIS SLIGHT; TARGET CELLS OCC
--- NOTE | 2021-01-20 18:05 | ED.ADGEN ---
Past Medical History Past Medical History: Arthritis, Other Additional Past Medical Histor: WOUND CARE, RIGHT THIGH, BUTTOCKS Past Surgical History: Other Additional Past Surgical Histo: CATARACT, L HIP PINS Smoking Status: Former Smoker Alcohol Use: None Drug Use: None General Adult EDM: Chief Complaint: CPR/FULL ARREST HPI: HPI: Patient is a 75-year-old female who presents to the emergency room after being found down at home. She has not been seen or heard from for the last week. Patient was found down unresponsive covered in urine and feces. No further history is available. Review of Systems: Review of Systems: Unable to be obtained Current Medications: Current Medications Medications (Trade) Dose Ordered Sig/Gaby Start Time Stop Time Status Last Admin Dose Admin Amiodarone HCl (Cordarone) 150 mg 1X ONCE 01/20/21 16:00 01/20/21 16:02 DC 01/20/21 15:08 150 MG Calcium Chloride (Calcium Chloride) 1,000 mg 1X ONCE 01/20/21 16:00 01/20/21 16:02 DC 01/20/21 15:08 1,000 MG Ceftriaxone Sodium (Rocephin) 1 gm 1X ONCE 01/20/21 15:15 01/20/21 15:16 DC Dopamine HCl/ Dextrose 250 ml @ 12.75 mls/ hr 1X ONCE 01/20/21 16:00 01/21/21 11:36 01/20/21 16:15 12.9 MLS/HR Epinephrine HCl (EPINEPHrine SYRINGE) 1 mg 1X ONCE 01/20/21 16:00 01/20/21 16:02 DC 01/20/21 15:07 1 MG Etomidate (Amidate) 30 mg 1X ONCE 01/20/21 16:00 01/20/21 16:05 DC 01/20/21 14:34 30 MG Lidocaine HCl (Lidocaine HCl 2% Abboject) 100 mg 1X ONCE 01/20/21 16:00 01/20/21 16:02 DC 01/20/21 15:08 100 MG Magnesium Sulfate/ Dextrose 100 ml @ 100 mls/hr 1X ONCE 01/20/21 16:00 01/20/21 16:59 DC 01/20/21 15:10 100 MLS/HR Midazolam HCl 100 ml @ 0 mls/hr 1X ONCE 01/20/21 15:00 01/20/21 15:01 DC Midazolam HCl 50 mg/Sodium Chloride 50 ml @ 0 mls/hr 1X ONCE 01/20/21 15:00 01/20/21 15:01 Cancel Norepinephrine Bitartrate 8 mg/ Dextrose 258 ml @ 15.48 mls/ hr 1X ONCE 01/20/21 15:00 01/21/21 07:39 01/20/21 14:59 15.48 MLS/HR Phenylephrine HCl 50 mg/Sodium Chloride 255 ml @ 10.526 mls/ hr CONT PRN 01/20/21 17:15 01/20/21 17:24 63.158 MLS/HR Sodium Bicarbonate (Sodium Bicarb Adult 8.4% Syr) 50 meq 1X ONCE 01/20/21 16:00 01/20/21 16:02 DC 01/20/21 15:08 50 MEQ Sodium Chloride 1,000 ml @ 1,000 mls/hr 1X ONCE 01/20/21 16:45 01/20/21 17:44 DC 01/20/21 15:06 1,000 MLS/HR Succinylcholine Chloride (Anectine) 150 mg 1X ONCE 01/20/21 16:00 01/20/21 16:03 DC 01/20/21 14:34 150 MG Allergies: Allergies: Allergies Coded Allergies Type Severity Reaction Last Updated Verified No Known Drug Allergies 10/12/16 No Physical Exam: PE: General: Unresponsive, toxic appearing HEENT: Atraumatic, eyes looking left, PERRL, airway patent, dry oral mucosa, vomit in airway Neck: Supple, trachea midline Respiratory: Decreased breath sounds bilaterally, diffuse crackles, minimal e ffort CV: Tachycardia, no murmur, cap refill <2 GI: Soft, nondistended, nontender, no masses MSK: Possible right hip deformity, bruising to the hips and left shoulder Skin: Warm, dry, intact Neuro: Unresponsive, occasionally opens eyes, does not respond to pain, does not move limbs Current Patient Data: Labs: Laboratory Tests Test 01/20/21 14:28 01/20/21 15:05 01/20/21 15:26 01/20/21 15:29 White Blood Count 6.9 x10^3/uL (4.0-11.0) Red Blood Count 4.47 x10^6/uL (3.50-5.40) Hemoglobin 11.5 g/dL (12.0-15.5) L Hematocrit 35.7 % (36.0-47.0) L Mean Corpuscular Volume 80 fL (79-100) Mean Corpuscular Hemoglobin 26 pg (25-35) Mean Corpuscular Hemoglobin Concent 32 g/dL (31-37) Red Cell Distribution Width 16.7 % (11.5-14.5) H Platelet Count 120 x10^3/uL (140-400) L Neutrophils (%) (Auto) 91 % (31-73) H Lymphocytes (%) (Auto) 7 % (24-48) L Monocytes (%) (Auto) 2 % (0-9) Eosinophils (%) (Auto) 0 % (0-3) Basophils (%) (Auto) 0 % (0-3) Neutrophils # (Auto) 6.3 x10^3/uL (1.8-7.7) Lymphocytes # (Auto) 0.5 x10^3/uL (1.0-4.8) L Monocytes # (Auto) 0.1 x10^3/uL (0.0-1.1) Eosinophils # (Auto) 0.0 x10^3/uL (0.0-0.7) Basophils # (Auto) 0.0 x10^3/uL (0.0-0.2) Segmented Neutrophils % 82 % (35-66) H Band Neutrophils % 3 % (0-9) Lymphocytes % 12 % (24-48) L Monocytes % 3 % (0-10) Nucleated Red Blood Cells 1 Platelet Estimate Decreased (ADEQUATE) Hypochromasia Slight Anisocytosis Slight Target Cells Occ Prothrombin Time 23.4 SEC (11.7-14.0) H Prothrombin Time INR 2.1 (0.8-1.1) H Sodium Level 161 mmol/L (136-145) *H Potassium Level 2.6 mmol/L (3.5-5.1) *L Chloride Level 118 mmol/L (98-107) H Carbon Dioxide Level 24 mmol/L (21-32) Anion Gap 19 (6-14) H 15 mmol/L (6-14) H Blood Urea Nitrogen 41 mg/dL (7-20) H Creatinine 2.1 mg/dL (0.6-1.0) H Estimated GFR (Cockcroft-Gault) 27.7 BUN/Creatinine Ratio 20 (6-20) Glucose Level 81 mg/dL (70-99) 124 mg/dL (70-99) H Lactic Acid Level 2.3 mmol/L (0.4-2.0) H Calcium Level 9.8 mg/dL (8.5-10.1) Magnesium Level 3.0 mg/dL (1.8-2.4) H Total Bilirubin 0.9 mg/dL (0.2-1.0) Aspartate Amino Transferase (AST) 68 U/L (15-37) H Alanine Aminotransferase (ALT) 45 U/L (14-59) Alkaline Phosphatase 84 U/L (46-116) Troponin I Quantitative 0.030 ng/mL (0.000-0.055) Total Protein 6.5 g/dL (6.4-8.2) Albumin 2.2 g/dL (3.4-5.0) L Albumin/Globulin Ratio 0.5 (1.0-1.7) L Urine Collection Type U cath Urine Color Yellow Urine Clarity Turbid Urine pH 5.5 (<5.0-8.0) Urine Specific [place] 1.015 (1.000-1.030) Urine Protein Negative mg/dL (NEG-TRACE) Urine Glucose (UA) Negative mg/dL (NEG) Urine Ketones (Stick) Negative mg/dL (NEG) Urine Blood Negative (NEG) Urine Nitrite Negative (NEG) Urine Bilirubin Moderate (NEG) Urine Urobilinogen Dipstick 0.2 mg/dL (0.2 mg/dL) Urine Leukocyte Esterase Negative (NEG) Urine RBC 0 /HPF (0-2) Urine WBC 1-4 /HPF (0-4) Urine Squamous Epithelial Cells Mod /LPF Urine Bacteria 0 /HPF (0-FEW) Urine Hyaline Casts Many /HPF Urine Mucus Marked /LPF POC Hemoglobin 5.1 g/dL (12-15) L POC Hematocrit 15 % (36-40) L POC Sodium 157 mmol/L (135-145) H POC Potassium 3.2 mmol/L (3.5-5.0) L POC Chloride 123 mmol/L (98-110) H POC Total CO2 24 mmol/L (23-32) POC Blood Urea Nitrogen 34 mg/dL (8-26) H POC Creatinine 1.5 mg/dL (0.5-1.4) H POC Ionized Calcium (Maximo) 1.54 mmol/L (1.13-1.32) H O2 Saturation 97 % (92-99) Arterial Blood pH 7.44 (7.35-7.45) Arterial Blood pCO2 at Patient Temp 32 mmHg (35-46) L Arterial Blood pO2 at Patient Temp 126 mmHg (65-108) H Arterial Blood HCO3 21 mmol/L (21-28) Arterial Blood Base Excess -3 mmol/L (-3-3) Oxyhemoglobin 95.8 % Methemoglobin 1.2 % (0.0-1.9) Carbon Monoxide, Quantitative 0.3 % (0.0-1.9) FiO2 100% vent Laboratory Tests 01/20/21 14:28 Laboratory Tests 01/20/21 14:28 01/20/21 15:26 Vital Signs: Vital Signs Date Time Temp Pulse Resp B/P (MAP) Pulse Ox O2 Delivery O2 Flow Rate FiO2 01/20/21 17:12 100 Ventilator 01/20/21 15:08 0 0/0 01/20/21 14:21 79.5 8 79.5 EKG: EKG: [] Heart Score: C/O Chest Pain: N/A Risk Factors: Risk Factors: DM, Current or recent (<one month) smoker, HTN, HLP, family history of CAD, obesity. Risk Scores: Score 0 - 3: 2.5% MACE over next 6 weeks - Discharge Home Score 4 - 6: 20.3% MACE over next 6 weeks - Admit for Clinical Observation Score 7 - 10: 72.7% MACE over next 6 weeks - Early Invasive Strategies Radiology/Procedures: Radiology/Procedures: [] Course & Med Decision Making: Course & Med Decision Making Pertinent Labs and Imaging studies reviewed. (See chart for details) Patient is a 75-year-old female who presents to the emergency room after being found down. Patient does occasionally open her eyes and blinks. She does not follow any commands. Due to her low GCS she was intubated. During intubation it was found that patient had a large amount of vomit caked into the back of her throat and vocal cords. Patient was cleaned due to being covered in feces and was found that she had multiple decubitus ulcers on her bottom. Patient also has signs of laying on the floor and has possible hip deformity and left sided bruising. At this time it is unclear the patient's original pathology. Patient's initial temperature was 79 F. She was placed on a Charu hugger. Patient did have an episode of cardiac arrest shortly after arrival. During car diac arrest patient was in ventricular fibrillation or ventricular tachycardia. She was given lidocaine, amiodarone, epinephrine, bicarb, calcium. She was shocked several times. We were able to obtain a pulse. Patient does remain bradycardic. She was placed back on the bear hugger. Patient's blood pressure remains unstable. She was placed on Levophed, dopamine, phenylephrine. She continues to have significant hypotension and hypothermia. CT scans of the head, C-spine, chest, abdomen, pelvis were ordered to evaluate for cause of pathology and any signs of trauma. Chest x-ray was ordered post intubation. Patient remained unstable and was unable to have imaging done. Patient had a s econd episode of cardiac arrest. After extensive efforts by the emergency room staff, patient was declared at 1547. At that time patient had no cardiac motion on bedside ultrasound. She had no palpable carotid or femoral pulse and pupils were unresponsive. Avenue Right Disclaimer: Avenue Right Disclaimer: This electronic medical record was generated, in whole or in part, using a voice recognition dictation system. Departure Departure Impression: Primary Impression: Hypothermia Additional Impressions: Hypotension Acute kidney injury Hypernatremia Disposition: 20 Condition: Referrals: NO PCP (PCP) PROCEDURE Procedure Intubation Performed by: Prasanna Rosa MD Consent: Verbal consent not obtained. The procedure was performed in an emergent situation. Required items: required blood products, implants, devices, and special equipment available Patient identity confirmed: arm band Time out: Immediately prior to procedure a "time out" was called to verify the correct patient, procedure, equipment, family support coordinator and site/side marked as required. Indications: respiratory failure and airway protection Intubation method: direct Patient status: paralyzed (RSI) Preoxygenation: BVM Sedatives: etomidate Paralytic: succinylcoline Laryngoscope size: Mac 4 Tube size: 7.5 mm Tube type: cuffed Number of attempts: 1 Cords visualized: yes Post-procedure assessment: chest rise, BS = bilaterally none over epigastrum, +CO2 detector Breath sounds: equal and absent over the epigastrium Cuff inflated: yes Tube secured with: adhesive tape Patient tolerance: Patient tolerated the procedure well with no immediate complications. Critical Care Time Critical Care: Authorized and Performed by: Prasanna Roas MD Total critical care time: approximately 120 minutes Due to a high probability of clinically significant, life threatening deterioration, the patient required my highest level of preparedness to intervene emergently and I personally spent this critical care time directly and personally managing the patient. This critical care time included obtaining a history; examining the patient; pulse oximetry; ventilator management if necessary; ordering and review of studies; arranging urgent treatment with dev elopment of a management plan; evaluation of patient's response to treatment; frequent reassessment; discussion with patient/family; and, discussions with other providers. This critical care time was performed to assess and manage the high probability of imminent, life-threatening deterioration that could result in multi-organ failure. It was exclusive of separately billable procedures and treating other patients and teaching time. Please see MDM section and the rest of the note for further information on patient assessment and treatment. Problem Qualifiers PRASANNA ROSA MD January 20, 2021 18:05
--- NOTE | 2021-01-20 20:54 | EKG ---
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
== END 2021-01-20 20:00 ==
LOC: ER 14:21
DX: T68.XXXA Hypothermia, initial encounter (principal); N17.9 Acute kidney failure, unspecified; I95.9 Hypotension, unspecified; E87.0 Hyperosmolality and hypernatremia; M19.90 Unspecified osteoarthritis, unspecified site
CPT/HCPCS: 31500; 36415; 36600; 51702; 80047; 80053; 81001; 82805; 83605; 83735; 84484; 85007; 85025; 85610; 86850; 86900; 86901; 87040; 87077; 87186; 87205; 92950; 93005; 96361; 96365; 99291; 99292; J0171; J0282; J0330; J0461; J1265; J2370; J3475; J3490; J7030; J7050; J7060; 94002